=== PATIENT | male | born 1960 | race African-American/Black ===

== ENCOUNTER 2017-12-20 09:49 | Inpatient (IN) | payer OTHER ==
[2017-12-20 10:59] VITALS: BMI 32.3
--- NOTE | 2017-12-20 13:51 | HP ---
COWS - Scale Resting Pulse: 1= [place] 81-100 Sweatin=Flushed/Facial Moisture Restless Observation: 1= Difficult to Sit Still Pupil Size: 0= Normal to Room Light Bone or Joint Aches: 2= Severe Diffuse Aches Runny Nose/ Eye Tearin= Nasal Congestion GI Upset > 30mins: 2= Nausea/Diarrhea Tremor Observation: 2= Slight Tremor Visible Yawning Observation: 1= 1-2x During Session Anxiety or Irritability: 2=Irritable/Anxious Goose Flesh Skin: 0=Smooth Skin COWS Score: 14 Admission ROS S - HPI Chief Complaint: "I know that I need help for myself and for my and family." Patient is here to Detox from Heroin. Allergies/Adverse Reactions: Allergies Allergy/AdvReac Type Severity Reaction Status Date / Time meperidine HCl [From Demerol] Allergy Hives Verified 12/20/17 11:19 History of Present Illness: Patient is a 57 YO male here to Detox from Heroin. This is patient's first Detox admission to [facility] (and in general). Exam Limitations: No Limitations - Ebola screening Have you traveled outside of the country in the last 21 days: No Have you had contact with anyone from an Ebola affected area: No Have you been sick,other than usual withdrawal symptoms: No Do you have a fever: No - Review of Systems Constitutional: Diaphoresis, Loss of Appetite, Malaise, Night Sweats, Changes in sleep, Unintentional Wgt. Loss EENT: reports: Nose Congestion, Sinus Pressure Respiratory: reports: No Symptoms reported Cardiac: reports: No Symptoms Reported GI: reports: Diarrhea, Nausea, Poor Appetite, Indigestion (Heartburn.) : reports: No Symptoms Reported Musculoskeletal: reports: No Symptoms Reported Integumentary: reports: No Symptoms Reported Neuro: reports: Tremors Endocrine: reports: No Symptoms Reported Hematology: reports: No Symptoms Reported Psychiatric: reports: Judgement Intact, Mood/Affect Appropiate, Orientated x3, Anxious, Depressed Other Systems: Reviewed and Negative Patient History - Patient Medical History Hx Anemia: No Hx Asthma: No Hx Chronic Obstructive Pulmonary Disease (COPD): No Hx Cancer: No Hx Cardiac Disorders: Yes (Pt had an aortic dissection x2) Hx Congestive Heart Failure: No Hx Hypertension: Yes (on meds.) Hx Hypercholesterolemia: No Hx Pacemaker: No HX Cerebrovascular Accident: No Hx Seizures: No Hx Dementia: No Hx Diabetes: No Hx Gastrointestinal Disorders: No Hx Liver Disease: No Hx Genitourinary Disorders: No Hx Sexually Transmitted Disorders: No Hx Renal Disease (ESRD): No Hx Thyroid Disease: No Hx Human Immunodeficiency Virus (HIV): No (Last Tested Many Years Ago: NEGATIVE. ) Hx Hepatitis C: No (Last Tested Many Years Ago: NEGATIVE.) Hx Depression: Yes (No Previous Treatment.) Hx Suicide Attempt: No (PATIENT DENIES CURRENT SI / HI.) Hx Bipolar Disorder: No Hx Schizophrenia: No Other Medical History: DENIES. - Patient Surgical History Past Surgical History: Yes Hx Neurologic Surgery: No Hx Cataract Extraction: No Hx Cardiac Surgery: Yes (Aortic dissection repair in 2017 and 2015) Hx Lung Surgery: No Hx Breast Surgery: No Hx Breast Biopsy: No Hx Abdominal Surgery: No Hx Appendectomy: No Hx Cholecystectomy: Yes (Unable to Recall Year.) Hx Genitourinary Surgery: Yes (Sx for kidney stones stent placement, > 10 years ago.) Hx Section: No Hx Orthopedic Surgery: No Other Surgical History: DENIES. Anesthesia Reaction: No - PPD History Previous Implant?: Yes Documented Results: Negative w/o proof Implanted On Prior R Admission?: No PPD to be Administered?: Yes - Reproductive History Patient is a Female of Child Bearing Age (11 -55 yrs old): No (PATIENT IS MALE.) - Smoking Cessation Smoking history: Never smoked Aproximately how many cigarettes per day: 0 Cigars Per Day: 0 Hx Chewing Tobacco Use: No Initiated information on smoking cessation: No - Substance & Tx. History Hx Alcohol Use: No Hx Substance Use: Yes Substance Use Type: Heroin Hx Substance Use Treatment: Yes ([facility] (stopped > 10 years ago).) - Substances Abused Heroin Route: Inhalation Frequency: Daily Amount used: 2 bags Age of first use: 24 Date of Last Use: 12/19/17 PCP Route: Smoking Frequency: Daily Amount used: 2 bags Age of first use: 22 Date of Last Use: 12/19/17 Family Disease History - Family Disease History Family Disease History: Diabetes: Father (Low BP; Kidney Dialysis. .), Heart Disease: Father, Mother (HTN), Brother (HTN; Cerbral Palsy.), Other: Father, Brother Admission Physical Exam BHS - Vital Signs Vital Signs: Vital Signs - 24 hr 12/20/17 10:56 Temperature 98 F Pulse Rate 90 Respiratory 18 Rate Blood Pressure 164/120 - Physical General Appearance: Yes: No Apparent Distress, Nourished, Appropriately Dressed , Tremorous, Anxious HEENTM: Yes: Hearing grossly Normal, Normocephalic, Normal Voice, GLENIS, Tm's normal Respiratory: Yes: Chest Non-Tender, Lungs Clear, No Respiratory Distress, No Accessory Muscle Use Neck: Yes: No masses,lesions,Nodules, Supple, Trachea in good position Breast: Yes: Breast Exam Deferred Cardiology: Yes: Regular Rhythm, Regular Rate, S1, S2 Abdominal: Yes: Normal Bowel Sounds, Non Tender, Flat, Soft Genitourinary: Yes: Within Normal Limits Back: Yes: Normal Inspection Musculoskeletal: Yes: full range of Motion, Gait Steady Extremities: Yes: Normal Capillary Refill, Normal Range of Motion, Non-Tender, Tremors Neurological: Yes: Fully Oriented, Alert, Normal Mood/Affect, Normal Response Integumentary: Yes: Normal Color, Dry, Warm Lymphatic: Yes: Within Normal Limits - Diagnostic (1) Opioid dependence with withdrawal Current Visit: Yes Status: Acute (2) PCP (phencyclidine) abuse Current Visit: Yes Status: Acute (3) History of aortic dissection Current Visit: Yes Status: Acute Comment: X 2 (2014, 2016). (4) History of dissecting abdominal aortic aneurysm repair Current Visit: Yes Status: Acute Comment: X 2 (2014, 2016). (5) Hypertension Current Visit: Yes Status: Acute Qualifiers: Hypertension type: essential hypertension Qualified Code(s): I10 - Essential (primary) hypertension Cleared for Admission [facility] - Detox or Rehab [facility] Level of Care: Medically Managed Detox Regimen/Protocol: Methadone [facility] Breath Alcohol Content Breath Alcohol Content: 0 Urine Drug Screen - Results Drug Screen Negative: No Urine Drug Screen Results: OPI-Opiates
[2017-12-20] MEDS ORDERED: MAGNESIUM CITRATE 300 ML BOTTLE PO PRN (14:15)
[2017-12-20] MEDS ORDERED: P-EPHED 60MG/TRIPROLIDI 2.5MG TABLET PO PRN (14:15)
[2017-12-20] MEDS ORDERED: LOPERAMIDE HCL 2 MG CAPSULE PO PRN (14:15)
[2017-12-20] MEDS ORDERED: guaiFENesin/D-METHORPHAN HB 10 ML UNIT-DOSE CUPS PO PRN (14:15)
[2017-12-20] MEDS ORDERED: MENTHOL/PHENOL 1 EACH UD MM PRN (14:15)
[2017-12-20] MEDS ORDERED: ACETAMINOPHEN 325 MG TABLET (FP) PO PRN (14:15)
[2017-12-20] MEDS ORDERED: IBUPROFEN 400 MG TABLET (FP) PO PRN (14:15)
[2017-12-20] MEDS ORDERED: MAG HYDROX/AL HYDROX/SIMETH 30 ML UNIT-DOSE CUP PO PRN (14:15)
[2017-12-20] MEDS ORDERED: MAGNESIUM HYDROX 2400MG/30ML ORAL SUSPENSION 30 ML CUP PO PRN (14:15)
[2017-12-20] MEDS ORDERED: METHADONE HCL 10 MG TABLET (FOR DETOX USE ONLY) PO ONE ×2 (14:55→23:00)
[2017-12-20] MEDS: diazePAM 5 MG TABLET PO PRN ×2 (16:13→22:15)
[2017-12-20] MEDS: LABETALOL HCL 200 MG TABLET (FP) PO SCH ×2 (16:14→22:16)
--- NOTE | 2017-12-20 18:07 | CONSULT ---
[facility] Psychiatric Consult - Data Date of interview: 12/20/17 Admission source: [facility] Identifying data: First admission to [facility] for this 57 y/o AA male seeking detox treatment on for heroin and phencyclidine dependence.Patient is ,a father of three,domiciled,unemployed,disabled and supported on SSI benefits. Substance Abuse History: Confirmed by patient in this session.Smoking history: Never smoked. Aproximately how many cigarettes per day: 0. Cigars Per Day: 0. Hx Chewing Tobacco Use: No. Initiated information on smoking cessation: No. - Substance & Tx. History. Hx Alcohol Use: No. Hx Substance Use: Yes. Substance Use Type: Heroin. Hx Substance Use Treatment: Yes ([facility] (stopped > 10 years ago).). - Substances Abused. Heroin. Route: Inhalation. Frequency: Daily. Amount used: 2 bags. Age of first use: 24. Date of Last Use: 12/19/17. PCP. Route: Smoking. Frequency: Daily. Amount used: 2 bags. Age of first use: 22. Date of Last Use: 12/19/17 Medical History: Hypertension,past history of cholecystectomy,CVA (2010) without residual deficits,renal disease (history of stent placement) and antecedent of treatment for aortic dissection (2017). Psychiatric History: Patient denies. Physical/Sexual Abuse/Trauma History: Patient denies. Additional Comment: Urine Drug Screen Results: OPI-Opiates.Noted. Mental Status Exam - Mental Status Exam Alert and Oriented to: Time, Place, Person Cognitive Function: Good Patient Appearance: Well Groomed Mood: Withdrawn, Hopeful Affect: Mood Congruent, Constricted Patient Behavior: Fatigued, Appropriate, Cooperative Speech Pattern: Clear, Appropriate Voice Loudness: Normal Thought Process: Intact, Goal Oriented Thought Disorder: Not Present Hallucinations: Denies Suicidal Ideation: Denies Homicidal Ideation: Denies Insight/Judgement: Poor Sleep: Poorly, Difficulty falling asleep Appetite: Good Muscle strength/Tone: Normal Gait/Station: Normal Psychiatric Findings - Problem List ([place] 1, 2,3) (1) Opioid dependence with withdrawal Status: Acute (2) PCP (phencyclidine) abuse Status: Acute (3) Insomnia Status: Acute - Initial Treatment Plan Initial Treatment Plan: Psychoeducation.Sleep hygiene.Orientation to unit.Detoxification in progress.Ambien 5 mg po hs prn.Patient is informed of risk of parasomnias.He agrees with this careplan.Observation.
[2017-12-20] MEDS: THIAMINE HCL 100 MG TABLET (FP) PO SCH (22:15)
[2017-12-20] MEDS: ATORVASTATIN CA 20 MG TABLET (FP) PO SCH (22:16)
[2017-12-20] MEDS: ZOLPIDEM TARTRATE 5 MG TABLET PO PRN (22:16)
[2017-12-20 22:34] LABS: URINE APPEARANCE SLCLOUDY; URINE BILIRUBIN NEGATIVE (NEGATIVE); URINE BLOOD NEGATIVE (NEGATIVE); URINE COLOR YELLOW; URINE GLUCOSE (UA) NEGATIVE (NEGATIVE); URINE KETONE NEGATIVE (NEGATIVE); URINE LEUK ESTERASE NEGATIVE (NEGATIVE); URINE NITRITE NEGATIVE (NEGATIVE); URINE PROTEIN NEGATIVE (NEGATIVE); URINE UROBILINOGEN NEGATIVE mg/dL (0.2-1.0)
[2017-12-21] MEDS: LABETALOL HCL 200 MG TABLET (FP) PO SCH ×3 (05:12→22:04)
[2017-12-21] MEDS ORDERED: METHADONE HCL 10 MG TABLET (FOR DETOX USE ONLY) PO ONE (10:00)
[2017-12-21] MEDS: FLUTICASONE PROP 0.05% 16 GM NASAL SPRAY NS SCH (10:10)
[2017-12-21] MEDS: PRENATAL VITAMINS W/ FOLIC ACID TABLET (FP) PO SCH (10:10)
[2017-12-21] MEDS: CHLORTHALIDONE 25 MG TABLET PO SCH (10:11)
[2017-12-21] MEDS: PANTOPRAZOLE 40 MG TABLET (FP) PO SCH (10:12)
[2017-12-21] MEDS: ASPIRIN 81 MG CHEWABLE TABLETS PO SCH (10:12)
[2017-12-21] MEDS: diazePAM 5 MG TABLET PO PRN ×2 (10:12→22:06)
[2017-12-21] MEDS: amLODIPine BESYLATE 10 MG TABLET (FP) PO SCH (10:12)
[2017-12-21] MEDS: LISINOPRIL 20 MG TABLET (FP) PO SCH (10:12)
[2017-12-21 11:04] LABS: HEMATOCRIT 40.6 % (35.4-49); HEMOGLOBIN 13.1 GM/dL (11.7-16.9); MCH 26.3 pg (25.7-33.7); MCHC 32.3 g/dl (32.0-35.9); MEAN CELL VOLUME 81.5 fl (80-96); MEAN PLT VOLUME 9.2 fl (7.5-11.1); PLATELET COUNT 168 K/MM3 (134-434); RBC 4.98 M/mm3 (4.00-5.60); RDW 15.5 % (11.9-15.9); WHITE BLOOD COUNT 6.1 K/mm3 (4.0-10.0)
[2017-12-21 11:13] LABS: ALBUMIN 3.9 g/dl (3.4-5.0); ANION GAP 12 (8-16); BILIRUBIN,TOTAL 0.8 mg/dL (0.2-1.0); BLOOD UREA NITROGEN 24 mg/dL (7-18); CALCIUM 9.6 mg/dL (8.5-10.1); CHLORIDE 107 mmol/L (98-107); CO2 23 mmol/L (21-32); CREATININE 1.9 mg/dL (0.7-1.3); GLUCOSE,RANDOM 139 mg/dL (74-106); POTASSIUM 3.9 mmol/L (3.5-5.1); SGOT/AST 23 U/L (15-37); SGPT/ALT 17 U/L (12-78); SODIUM 142 mmol/L (136-145); TOT PROT 8.5 g/dl (6.4-8.2)
[2017-12-21 11:14] LABS: ALK PHOS 74 U/L (45-117)
--- NOTE | 2017-12-21 11:57 | EKG ---
Test Reason : Blood Pressure : / mmHG Vent. Rate : 078 BPM Atrial Rate : 078 BPM P-R Int : 168 ms QRS Dur : 100 ms QT Int : 380 ms P-R-T Axes : 039 011 025 degrees QTc Int : 433 ms NORMAL SINUS RHYTHM MODERATE VOLTAGE CRITERIA FOR LVH, MAY BE NORMAL VARIANT BORDERLINE ECG Confirmed by MD GO, KWADWO ([id number]) on 12/21/2017 11:57:26 AM Referred By: Confirmed By:KWADWO STILES MD
[2017-12-21] MEDS ORDERED: FLU VACCINE QUAD 60 MCG/0.5 ML (MDV 17-18) IM ONE (12:00)
[2017-12-21] MEDS ORDERED: PNEUMOCOCCAL 23 VACCINE 0.5 ML VIAL IM ONE (12:00)
[2017-12-21] MEDS ORDERED: PNEUMOC 13-VAL CONJ-DIP CRM/PF 0.5 ML DISP.SYRIN IM ONE (12:00)
--- NOTE | 2017-12-21 13:39 | PN ---
BHS COWS - Scale Resting Pulse: 0= [place] 80 or Below Sweatin= Chills/Flushing Restless Observation: 1= Difficult to Sit Still Pupil Size: 0= Normal to Room Light Bone or Joint Aches: 2= Severe Diffuse Aches Runny Nose/ Eye Tearin= None GI Upset > 30mins: 3= Vomiting/Diarrhea Tremor Observation of Outstretched Hands: 2= Slight Tremor Visible Yawning Observation: 1= 1-2x During Session Anxiety or Irritability: 2=Irritable/Anxious Goose Flesh Skin: 3=Piloerection COWS Score: 15 BHS Progress Note (SOAP) Subjective: Tremors, Body Aches, Stomach Cramping, H/A, Sweating. Objective: PATIENT A & O X 3, OBSERVED AMBULATING ON UNIT. NO ACUTE DISTRESS. 12/21/17 13:38 Vital Signs Temperature 98.6 F 12/21/17 09:45 Pulse Rate 62 12/21/17 09:45 Respiratory Rate 20 12/21/17 09:45 Blood Pressure 123/69 12/21/17 09:45 O2 Sat by Pulse Oximetry (%) Laboratory Tests 12/20/17 12/20/17 12/21/17 12:00 21:30 05:40 WBC 6.1 RBC 4.98 Hgb 13.1 Hct 40.6 MCV 81.5 MCH 26.3 MCHC 32.3 RDW 15.5 Plt Count 168 MPV 9.2 Sodium Potassium Chloride Carbon Dioxide Anion Gap BUN Creatinine Creat Clearance w eGFR Random Glucose Calcium Total Bilirubin AST ALT Alkaline Phosphatase Total Protein Albumin Urine Color Yellow Urine Appearance Slcloudy Urine pH 5.0 Ur Specific [place] 1.016 Urine Protein Negative Urine Glucose (UA) Negative Urine Ketones Negative Urine Blood Negative Urine Nitrite Negative Urine Bilirubin Negative Urine Urobilinogen Negative Ur Leukocyte Esterase Negative HIV 1&2 Antibody Screen Negative HIV P24 Antigen Negative 12/21/17 05:40 WBC RBC Hgb Hct MCV MCH MCHC RDW Plt Count MPV Sodium 142 Potassium 3.9 Chloride 107 Carbon Dioxide 23 Anion Gap 12 BUN 24 H Creatinine 1.9 H Creat Clearance w eGFR 36.85 Random Glucose 139 H D Calcium 9.6 Total Bilirubin 0.8 D AST 23 D ALT 17 D Alkaline Phosphatase 74 D Total Protein 8.5 H Albumin 3.9 Urine Color Urine Appearance Urine pH Ur Specific [place] Urine Protein Urine Glucose (UA) Urine Ketones Urine Blood Urine Nitrite Urine Bilirubin Urine Urobilinogen Ur Leukocyte Esterase HIV 1&2 Antibody Screen HIV P24 Antigen LABS NOTED. RPR RESULT PENDING. 12/21/17 13:40 Assessment: 12/21/17 13:38 WITHDRAWAL SYMPTOMS. Plan: CONTINUE DETOX. BMP ON 12/23/2017 FOR ABNORMAL ADMSSION RENAL LAB VALUES. D/C IBUPROFEN AND MAGNESIUM-CONTAINING MEDS. BGM ACBK FOR ELEVATED ADMISSION RANDOM GLUCOSE LEVEL.
[2017-12-21] MEDS: THIAMINE HCL 100 MG TABLET (FP) PO SCH (22:03)
[2017-12-21] MEDS: ZOLPIDEM TARTRATE 5 MG TABLET PO PRN (22:03)
[2017-12-21] MEDS: ATORVASTATIN CA 20 MG TABLET (FP) PO SCH (22:03)
[2017-12-22] MEDS: LABETALOL HCL 200 MG TABLET (FP) PO SCH ×3 (06:40→22:12)
[2017-12-22] MEDS ORDERED: METHADONE HCL 5 MG TABLET (FOR DETOX USE ONLY) PO ONE (10:00)
[2017-12-22] MEDS: amLODIPine BESYLATE 10 MG TABLET (FP) PO SCH (10:07)
[2017-12-22] MEDS: PANTOPRAZOLE 40 MG TABLET (FP) PO SCH (10:07)
[2017-12-22] MEDS: LISINOPRIL 20 MG TABLET (FP) PO SCH (10:07)
[2017-12-22] MEDS: CHLORTHALIDONE 25 MG TABLET PO SCH (10:07)
[2017-12-22] MEDS: ASPIRIN 81 MG CHEWABLE TABLETS PO SCH (10:07)
[2017-12-22] MEDS: PRENATAL VITAMINS W/ FOLIC ACID TABLET (FP) PO SCH (10:07)
[2017-12-22] MEDS: FLUTICASONE PROP 0.05% 16 GM NASAL SPRAY NS SCH (10:08)
[2017-12-22] MEDS: diazePAM 5 MG TABLET PO PRN ×3 (10:08→22:12)
--- NOTE | 2017-12-22 13:05 | PN ---
BHS COWS - Scale Resting Pulse: 0= [place] 80 or Below Sweatin= Chills/Flushing Restless Observation: 3= Extraneous Movement Pupil Size: 0= Normal to Room Light Bone or Joint Aches: 2= Severe Diffuse Aches Runny Nose/ Eye Tearin= Runny Nose/Eyes GI Upset > 30mins: 2= Nausea/Diarrhea Tremor Observation of Outstretched Hands: 2= Slight Tremor Visible Yawning Observation: 1= 1-2x During Session Anxiety or Irritability: 2=Irritable/Anxious Goose Flesh Skin: 0=Smooth Skin COWS Score: 15 BHS Progress Note (SOAP) Subjective: Body aches, stomach ache, chills, interrupted sleep Objective: 12/22/17 13:02 Last Vital Signs Temp Pulse Resp BP Pulse Ox 96.1 F L 66 18 149/87 12/22/17 09:40 12/22/17 09:40 12/22/17 09:40 12/22/17 09:40 Laboratory Tests 12/20/17 12/20/17 12/21/17 12:00 21:30 05:40 WBC 6.1 RBC 4.98 Hgb 13.1 Hct 40.6 MCV 81.5 MCH 26.3 MCHC 32.3 RDW 15.5 Plt Count 168 MPV 9.2 Sodium Potassium Chloride Carbon Dioxide Anion Gap BUN Creatinine Creat Clearance w eGFR POC Glucometer Random Glucose Calcium Total Bilirubin AST ALT Alkaline Phosphatase Total Protein Albumin Urine Color Yellow Urine Appearance Slcloudy Urine pH 5.0 Ur Specific [place] 1.016 Urine Protein Negative Urine Glucose (UA) Negative Urine Ketones Negative Urine Blood Negative Urine Nitrite Negative Urine Bilirubin Negative Urine Urobilinogen Negative Ur Leukocyte Esterase Negative HIV 1&2 Antibody Screen Negative HIV P24 Antigen Negative 12/21/17 12/22/17 05:40 06:33 WBC RBC Hgb Hct MCV MCH MCHC RDW Plt Count MPV Sodium 142 Potassium 3.9 Chloride 107 Carbon Dioxide 23 Anion Gap 12 BUN 24 H Creatinine 1.9 H Creat Clearance w eGFR 36.85 POC Glucometer 114 Random Glucose 139 H D Calcium 9.6 Total Bilirubin 0.8 D AST 23 D ALT 17 D Alkaline Phosphatase 74 D Total Protein 8.5 H Albumin 3.9 Urine Color Urine Appearance Urine pH Ur Specific [place] Urine Protein Urine Glucose (UA) Urine Ketones Urine Blood Urine Nitrite Urine Bilirubin Urine Urobilinogen Ur Leukocyte Esterase HIV 1&2 Antibody Screen HIV P24 Antigen Labs noted: serum creatinine 1.9, bun 24, GFR 36.85, serum glucose 139 Assessment: 12/22/17 13:04 Withdrawal symptoms Noted with GERALD and hyperglycemia Plan: Continue detox GERALD: encouraged to drink lots of water, repeat bmp (already ordered) Hyperglycemia: repeat fasting glucose, send HbA1c, consider starting oral antidiabetic if warranted, continue finger stick glucose
[2017-12-22] MEDS: THIAMINE HCL 100 MG TABLET (FP) PO SCH (22:10)
[2017-12-22] MEDS: ATORVASTATIN CA 20 MG TABLET (FP) PO SCH (22:12)
[2017-12-23] MEDS: LABETALOL HCL 200 MG TABLET (FP) PO SCH ×3 (05:32→22:37)
[2017-12-23] MEDS: diazePAM 5 MG TABLET PO PRN ×2 (05:33→09:40)
[2017-12-23] MEDS ORDERED: METHADONE HCL 5 MG TABLET (FOR DETOX USE ONLY) PO ONE (10:00)
[2017-12-23] MEDS: PANTOPRAZOLE 40 MG TABLET (FP) PO SCH (10:18)
[2017-12-23] MEDS: CHLORTHALIDONE 25 MG TABLET PO SCH (10:18)
[2017-12-23] MEDS: FLUTICASONE PROP 0.05% 16 GM NASAL SPRAY NS SCH (10:18)
[2017-12-23] MEDS: amLODIPine BESYLATE 10 MG TABLET (FP) PO SCH ×2 (10:18→16:35)
[2017-12-23] MEDS: ASPIRIN 81 MG CHEWABLE TABLETS PO SCH (10:19)
[2017-12-23] MEDS: PRENATAL VITAMINS W/ FOLIC ACID TABLET (FP) PO SCH (10:19)
[2017-12-23 10:28] LABS: ANION GAP 12 (8-16); BLOOD UREA NITROGEN 25 mg/dL (7-18); CALCIUM 8.8 mg/dL (8.5-10.1); CHLORIDE 104 mmol/L (98-107); CO2 24 mmol/L (21-32); GLUCOSE,RANDOM 87 mg/dL (74-106); POTASSIUM 4.5 mmol/L (3.5-5.1); SODIUM 140 mmol/L (136-145)
--- NOTE | 2017-12-23 10:51 | PN ---
BHS Progress Note (SOAP) Subjective: ANXIETY,SWEATS,MUSCLE ACHES,INTERMITTENT SLEEP. Objective: 12/23/17 10:51 Vital Signs Temperature 96.2 F L 12/23/17 09:39 Pulse Rate 69 12/23/17 09:39 Respiratory Rate 20 12/23/17 09:39 Blood Pressure 123/77 12/23/17 09:39 O2 Sat by Pulse Oximetry (%) Laboratory Last Values WBC 6.1 K/mm3 (4.0-10.0) 12/21/17 05:40 RBC 4.98 M/mm3 (4.00-5.60) 12/21/17 05:40 Hgb 13.1 GM/dL (11.7-16.9) 12/21/17 05:40 Hct 40.6 % (35.4-49) 12/21/17 05:40 MCV 81.5 fl (80-96) 12/21/17 05:40 MCH 26.3 pg (25.7-33.7) 12/21/17 05:40 MCHC 32.3 g/dl (32.0-35.9) 12/21/17 05:40 RDW 15.5 % (11.9-15.9) 12/21/17 05:40 Plt Count 168 K/MM3 (134-434) 12/21/17 05:40 MPV 9.2 fl (7.5-11.1) 12/21/17 05:40 Sodium 140 mmol/L (136-145) 12/23/17 07:00 Potassium 4.5 mmol/L (3.5-5.1) 12/23/17 07:00 Chloride 104 mmol/L (98-107) 12/23/17 07:00 Carbon Dioxide 24 mmol/L (21-32) 12/23/17 07:00 Anion Gap 12 (8-16) 12/23/17 07:00 BUN 25 mg/dL (7-18) H 12/23/17 07:00 Creatinine 2.0 mg/dL (0.7-1.3) H 12/23/17 07:00 Creat Clearance w eGFR 36.85 (>60) 12/21/17 05:40 POC Glucometer 97 UNITS (80-120) 12/23/17 05:31 Random Glucose 87 mg/dL (74-106) D 12/23/17 07:00 Hemoglobin A1c % 6.0 % (4.8-6.0) 12/23/17 07:00 Calcium 8.8 mg/dL (8.5-10.1) 12/23/17 07:00 Total Bilirubin 0.8 mg/dL (0.2-1.0) D 12/21/17 05:40 AST 23 U/L (15-37) D 12/21/17 05:40 ALT 17 U/L (12-78) D 12/21/17 05:40 Alkaline Phosphatase 74 U/L (45-117) D 12/21/17 05:40 Total Protein 8.5 g/dl (6.4-8.2) H 12/21/17 05:40 Albumin 3.9 g/dl (3.4-5.0) 12/21/17 05:40 Urine Color Yellow 12/20/17 21:30 Urine Appearance Slcloudy 12/20/17 21:30 Urine pH 5.0 (5.0-8.0) 12/20/17 21:30 Ur Specific [place] 1.016 (1.001-1.035) 12/20/17 21:30 Urine Protein Negative (NEGATIVE) 12/20/17 21:30 Urine Glucose (UA) Negative (NEGATIVE) 12/20/17 21:30 Urine Ketones Negative (NEGATIVE) 12/20/17 21:30 Urine Blood Negative (NEGATIVE) 12/20/17 21:30 Urine Nitrite Negative (NEGATIVE) 12/20/17 21:30 Urine Bilirubin Negative (NEGATIVE) 12/20/17 21:30 Urine Urobilinogen Negative mg/dL (0.2-1.0) 12/20/17 21:30 Ur Leukocyte Esterase Negative (NEGATIVE) 12/20/17 21:30 RPR Titer Nonreactive (NONREACTIVE) 12/21/17 05:40 HIV 1&2 Antibody Screen Negative 12/20/17 12:00 HIV P24 Antigen Negative 12/20/17 12:00 Assessment: 12/23/17 10:51 WITHDRAWAL SX Plan: CONTINUE DETOX
[2017-12-23] MEDS: ATORVASTATIN CA 20 MG TABLET (FP) PO SCH (22:36)
[2017-12-23] MEDS: THIAMINE HCL 100 MG TABLET (FP) PO SCH (22:36)
[2017-12-24] MEDS: LABETALOL HCL 200 MG TABLET (FP) PO SCH ×3 (05:23→22:43)
[2017-12-24] MEDS ORDERED: METHADONE HCL 10 MG TABLET (FOR DETOX USE ONLY) PO ONE (10:00)
[2017-12-24] MEDS ORDERED: CHLORTHALIDONE 25 MG TABLET PO SCH ×2 (10:00)
[2017-12-24] MEDS: FLUTICASONE PROP 0.05% 16 GM NASAL SPRAY NS SCH (10:22)
[2017-12-24] MEDS: ASPIRIN 81 MG CHEWABLE TABLETS PO SCH (10:23)
[2017-12-24] MEDS: PRENATAL VITAMINS W/ FOLIC ACID TABLET (FP) PO SCH (10:23)
[2017-12-24] MEDS: amLODIPine BESYLATE 10 MG TABLET (FP) PO SCH (10:23)
[2017-12-24] MEDS: PANTOPRAZOLE 40 MG TABLET (FP) PO SCH (10:50)
--- NOTE | 2017-12-24 12:39 | PN ---
S Progress Note (SOAP) Subjective: ANXIETY,SWEATS,DIARRHEA. Objective: 12/24/17 12:42 Vital Signs Temperature 97.1 F L 12/24/17 09:16 Pulse Rate 87 12/24/17 09:16 Respiratory Rate 18 12/24/17 09:16 Blood Pressure 126/79 12/24/17 09:16 O2 Sat by Pulse Oximetry (%) Laboratory Last Values WBC 6.1 K/mm3 (4.0-10.0) 12/21/17 05:40 RBC 4.98 M/mm3 (4.00-5.60) 12/21/17 05:40 Hgb 13.1 GM/dL (11.7-16.9) 12/21/17 05:40 Hct 40.6 % (35.4-49) 12/21/17 05:40 MCV 81.5 fl (80-96) 12/21/17 05:40 MCH 26.3 pg (25.7-33.7) 12/21/17 05:40 MCHC 32.3 g/dl (32.0-35.9) 12/21/17 05:40 RDW 15.5 % (11.9-15.9) 12/21/17 05:40 Plt Count 168 K/MM3 (134-434) 12/21/17 05:40 MPV 9.2 fl (7.5-11.1) 12/21/17 05:40 Sodium 140 mmol/L (136-145) 12/23/17 07:00 Potassium 4.5 mmol/L (3.5-5.1) 12/23/17 07:00 Chloride 104 mmol/L (98-107) 12/23/17 07:00 Carbon Dioxide 24 mmol/L (21-32) 12/23/17 07:00 Anion Gap 12 (8-16) 12/23/17 07:00 BUN 25 mg/dL (7-18) H 12/23/17 07:00 Creatinine 2.0 mg/dL (0.7-1.3) H 12/23/17 07:00 Creat Clearance w eGFR 36.85 (>60) 12/21/17 05:40 POC Glucometer 107 UNITS (80-120) 12/24/17 05:24 Random Glucose 87 mg/dL (74-106) D 12/23/17 07:00 Hemoglobin A1c % 6.0 % (4.8-6.0) 12/23/17 07:00 Calcium 8.8 mg/dL (8.5-10.1) 12/23/17 07:00 Total Bilirubin 0.8 mg/dL (0.2-1.0) D 12/21/17 05:40 AST 23 U/L (15-37) D 12/21/17 05:40 ALT 17 U/L (12-78) D 12/21/17 05:40 Alkaline Phosphatase 74 U/L (45-117) D 12/21/17 05:40 Total Protein 8.5 g/dl (6.4-8.2) H 12/21/17 05:40 Albumin 3.9 g/dl (3.4-5.0) 12/21/17 05:40 Urine Color Yellow 12/20/17 21:30 Urine Appearance Slcloudy 12/20/17 21:30 Urine pH 5.0 (5.0-8.0) 12/20/17 21:30 Ur Specific [place] 1.016 (1.001-1.035) 12/20/17 21:30 Urine Protein Negative (NEGATIVE) 12/20/17 21:30 Urine Glucose (UA) Negative (NEGATIVE) 12/20/17 21:30 Urine Ketones Negative (NEGATIVE) 12/20/17 21:30 Urine Blood Negative (NEGATIVE) 12/20/17 21:30 Urine Nitrite Negative (NEGATIVE) 12/20/17 21:30 Urine Bilirubin Negative (NEGATIVE) 12/20/17 21:30 Urine Urobilinogen Negative mg/dL (0.2-1.0) 12/20/17 21:30 Ur Leukocyte Esterase Negative (NEGATIVE) 12/20/17 21:30 RPR Titer Nonreactive (NONREACTIVE) 12/21/17 05:40 HIV 1&2 Antibody Screen Negative 12/20/17 12:00 HIV P24 Antigen Negative 12/20/17 12:00 Assessment: 12/24/17 12:43 WITHDRAWAL SX Plan: CONTINUE DETOX
[2017-12-24] MEDS: ATORVASTATIN CA 20 MG TABLET (FP) PO SCH (22:13)
[2017-12-24] MEDS: THIAMINE HCL 100 MG TABLET (FP) PO SCH (22:13)
[2017-12-25] MEDS: LABETALOL HCL 200 MG TABLET (FP) PO SCH (05:50)
[2017-12-25] MEDS ORDERED: METHADONE HCL 5 MG TABLET (FOR DETOX USE ONLY) PO ONE (06:00)
[2017-12-25 06:11] VITALS: BP 114/62; PULSE 70; TEMP 95.8
--- NOTE | 2017-12-25 08:49 | DS ---
[facility] Detox Discharge Summary Admission Date: 12/20/17 Discharge Date: 12/25/17 - History Present History: Opioid Dependence, Pcp Dependence Additional Comments: DETOX COMPLETED. PT TO FOLLOW UP WITH HIS PMD DR MARCIA GUNN(NOT SURE OF SPELLING) AT [address] [place] [address] FOR MEDICAL MANAGEMENT OF COMORBID CONDITIONS NEEDED. Pertinent Past History: SEE DX BELOW - Physical Exam Results Vital Signs: Vital Signs Temperature 95.8 F L 12/25/17 06:11 Pulse Rate 70 12/25/17 06:11 Respiratory Rate 19 12/25/17 06:11 Blood Pressure 114/62 12/25/17 06:11 O2 Sat by Pulse Oximetry (%) Pertinent Admission Physical Exam Findings: WITHDRAWAL SX Laboratory Last Values WBC 6.1 K/mm3 (4.0-10.0) 12/21/17 05:40 RBC 4.98 M/mm3 (4.00-5.60) 12/21/17 05:40 Hgb 13.1 GM/dL (11.7-16.9) 12/21/17 05:40 Hct 40.6 % (35.4-49) 12/21/17 05:40 MCV 81.5 fl (80-96) 12/21/17 05:40 MCH 26.3 pg (25.7-33.7) 12/21/17 05:40 MCHC 32.3 g/dl (32.0-35.9) 12/21/17 05:40 RDW 15.5 % (11.9-15.9) 12/21/17 05:40 Plt Count 168 K/MM3 (134-434) 12/21/17 05:40 MPV 9.2 fl (7.5-11.1) 12/21/17 05:40 Sodium 140 mmol/L (136-145) 12/23/17 07:00 Potassium 4.5 mmol/L (3.5-5.1) 12/23/17 07:00 Chloride 104 mmol/L (98-107) 12/23/17 07:00 Carbon Dioxide 24 mmol/L (21-32) 12/23/17 07:00 Anion Gap 12 (8-16) 12/23/17 07:00 BUN 25 mg/dL (7-18) H 12/23/17 07:00 Creatinine 2.0 mg/dL (0.7-1.3) H 12/23/17 07:00 Creat Clearance w eGFR 36.85 (>60) 12/21/17 05:40 POC Glucometer 102 UNITS (80-120) 12/25/17 05:43 Random Glucose 87 mg/dL (74-106) D 12/23/17 07:00 Hemoglobin A1c % 6.0 % (4.8-6.0) 12/23/17 07:00 Calcium 8.8 mg/dL (8.5-10.1) 12/23/17 07:00 Total Bilirubin 0.8 mg/dL (0.2-1.0) D 12/21/17 05:40 AST 23 U/L (15-37) D 12/21/17 05:40 ALT 17 U/L (12-78) D 12/21/17 05:40 Alkaline Phosphatase 74 U/L (45-117) D 12/21/17 05:40 Total Protein 8.5 g/dl (6.4-8.2) H 12/21/17 05:40 Albumin 3.9 g/dl (3.4-5.0) 12/21/17 05:40 Urine Color Yellow 12/20/17 21:30 Urine Appearance Slcloudy 12/20/17 21:30 Urine pH 5.0 (5.0-8.0) 12/20/17 21:30 Ur Specific [place] 1.016 (1.001-1.035) 12/20/17 21:30 Urine Protein Negative (NEGATIVE) 12/20/17 21:30 Urine Glucose (UA) Negative (NEGATIVE) 12/20/17 21:30 Urine Ketones Negative (NEGATIVE) 12/20/17 21:30 Urine Blood Negative (NEGATIVE) 12/20/17 21:30 Urine Nitrite Negative (NEGATIVE) 12/20/17 21:30 Urine Bilirubin Negative (NEGATIVE) 12/20/17 21:30 Urine Urobilinogen Negative mg/dL (0.2-1.0) 12/20/17 21:30 Ur Leukocyte Esterase Negative (NEGATIVE) 12/20/17 21:30 RPR Titer Nonreactive (NONREACTIVE) 12/21/17 05:40 HIV 1&2 Antibody Screen Negative 12/20/17 12:00 HIV P24 Antigen Negative 12/20/17 12:00 - Treatment Hospital Course: Detox Protocol Followed, Detoxed Safely, Responded well, Discharged Condition Good, Rehab Referral Accepted Patient has Accepted a Rehab Referral to: [facility] - Medication Discharge Medications: Ambulatory Orders Amlodipine Besylate [Norvasc -] 10 mg PO DAILY 12/20/17 Aspirin [ASA -] 81 mg PO DAILY 12/20/17 Atorvastatin Ca [Lipitor] 20 mg PO HS 12/20/17 Chlorthalidone 25 mg PO DAILY 12/20/17 Fluticasone Prop 0.05% Nasal [Flonase -] 2 spray IH DAILY 12/20/17 Labetalol HCl [Normodyne -] 400 mg PO TID 12/20/17 Lisinopril [Prinivil -] 40 mg PO DAILY 12/20/17 Pantoprazole Sodium [Protonix -] 40 mg PO DAILY 12/20/17 Zolpidem Tartrate [Ambien] 10 mg PO HS 12/20/17 - Diagnosis (1) Opioid dependence with withdrawal Status: Acute (2) Hypertension Status: Chronic Qualifiers: Hypertension type: essential hypertension Qualified Code(s): I10 - Essential (primary) hypertension (3) History of dissecting abdominal aortic aneurysm repair Status: Chronic (4) PCP (phencyclidine) abuse Status: Acute (5) History of aortic dissection Status: Chronic - AMA Did Patient Leave Against Medical Advice: No
--- NOTE | 2017-12-25 08:54 | PN ---
S Progress Note (SOAP) Subjective: DETOX COMPLETED. ALERT O X 3. NAD. OOB AMBULATING WITH STEADY GAIT. PT STATES HIS IS PICKING HIM UP TODAY TO HOME THEN HE WILL FOLLOW UP WITH REHAB AT [facility]. Objective: 12/25/17 08:54 Vital Signs Temperature 95.8 F L 12/25/17 06:11 Pulse Rate 70 12/25/17 06:11 Respiratory Rate 19 12/25/17 06:11 Blood Pressure 114/62 12/25/17 06:11 O2 Sat by Pulse Oximetry (%) Laboratory Last Values WBC 6.1 K/mm3 (4.0-10.0) 12/21/17 05:40 RBC 4.98 M/mm3 (4.00-5.60) 12/21/17 05:40 Hgb 13.1 GM/dL (11.7-16.9) 12/21/17 05:40 Hct 40.6 % (35.4-49) 12/21/17 05:40 MCV 81.5 fl (80-96) 12/21/17 05:40 MCH 26.3 pg (25.7-33.7) 12/21/17 05:40 MCHC 32.3 g/dl (32.0-35.9) 12/21/17 05:40 RDW 15.5 % (11.9-15.9) 12/21/17 05:40 Plt Count 168 K/MM3 (134-434) 12/21/17 05:40 MPV 9.2 fl (7.5-11.1) 12/21/17 05:40 Sodium 140 mmol/L (136-145) 12/23/17 07:00 Potassium 4.5 mmol/L (3.5-5.1) 12/23/17 07:00 Chloride 104 mmol/L (98-107) 12/23/17 07:00 Carbon Dioxide 24 mmol/L (21-32) 12/23/17 07:00 Anion Gap 12 (8-16) 12/23/17 07:00 BUN 25 mg/dL (7-18) H 12/23/17 07:00 Creatinine 2.0 mg/dL (0.7-1.3) H 12/23/17 07:00 Creat Clearance w eGFR 36.85 (>60) 12/21/17 05:40 POC Glucometer 102 UNITS (80-120) 12/25/17 05:43 Random Glucose 87 mg/dL (74-106) D 12/23/17 07:00 Hemoglobin A1c % 6.0 % (4.8-6.0) 12/23/17 07:00 Calcium 8.8 mg/dL (8.5-10.1) 12/23/17 07:00 Total Bilirubin 0.8 mg/dL (0.2-1.0) D 12/21/17 05:40 AST 23 U/L (15-37) D 12/21/17 05:40 ALT 17 U/L (12-78) D 12/21/17 05:40 Alkaline Phosphatase 74 U/L (45-117) D 12/21/17 05:40 Total Protein 8.5 g/dl (6.4-8.2) H 12/21/17 05:40 Albumin 3.9 g/dl (3.4-5.0) 12/21/17 05:40 Urine Color Yellow 12/20/17 21:30 Urine Appearance Slcloudy 12/20/17 21:30 Urine pH 5.0 (5.0-8.0) 12/20/17 21:30 Ur Specific [place] 1.016 (1.001-1.035) 12/20/17 21:30 Urine Protein Negative (NEGATIVE) 12/20/17 21:30 Urine Glucose (UA) Negative (NEGATIVE) 12/20/17 21:30 Urine Ketones Negative (NEGATIVE) 12/20/17 21:30 Urine Blood Negative (NEGATIVE) 12/20/17 21:30 Urine Nitrite Negative (NEGATIVE) 12/20/17 21:30 Urine Bilirubin Negative (NEGATIVE) 12/20/17 21:30 Urine Urobilinogen Negative mg/dL (0.2-1.0) 12/20/17 21:30 Ur Leukocyte Esterase Negative (NEGATIVE) 12/20/17 21:30 RPR Titer Nonreactive (NONREACTIVE) 12/21/17 05:40 HIV 1&2 Antibody Screen Negative 12/20/17 12:00 HIV P24 Antigen Negative 12/20/17 12:00 Assessment: 12/25/17 08:55 NAD Plan: FEBRUARY D/C TODAY F/U WITH AFTERCARE PLANNED.
== END 2017-12-25 08:58 | disposition home or self-care (01) | DRG 773 ==
LOC: YASAS 09:49 → Y3N 12:57
PROVIDERS: ADMIT Internal Medicine; ATTEND Internal Medicine
PROC: HZ2ZZZZ Detoxification Services for Substance Abuse Treatment (ICD-10-PCS; principal; 2017-12-20)
DX: F11.23 Opioid dependence with withdrawal (principal); F16.10 Hallucinogen abuse, uncomplicated; F32.9 Major depressive disorder, single episode, unspecified; I10 Essential (primary) hypertension; N17.9 Acute kidney failure, unspecified; R73.9 Hyperglycemia, unspecified; G47.00 Insomnia, unspecified; Z86.79 Personal history of other diseases of the circulatory system; Z86.73 Personal history of transient ischemic attack (TIA), and cerebral infarction without residual deficits; Z88.8 Allergy status to other drugs, medicaments and biological substances
CPT/HCPCS: 36415; 71045-TC-FY; 80048; 80053; 81003; 82962; 83036; 85027; 86593; 87389; 93005; 93010

== ENCOUNTER → 2019-01-10 | Emergency (ER) | payer OTHER | LOC: JER 18:34 ==

== ENCOUNTER 2020-05-19 09:25 | Inpatient (IN) | payer OTHER ==
--- NOTE | 2020-05-19 09:40 | BHS.RME ---
Substance Use & Tx History - Substance Use History Heroin Substance amount: 2-3 bags Frequency of use: Daily Substance route: Inhalation (ex: sniffing or snorting) Date of Last Use: 05/19/20 PCP Substance amount: 1 bag Frequency of use: Once a month Substance route: Smoking Date of Last Use: 05/18/20 - Last Treatment Date of last treatment: 12/20-12/25/17 Treatment type: Substance Use Disorder (TONNY) Where was last treatment: Detox Physical/Psych/Mental Status - Behavior General Behavior: Increased activity (restlessness, agitation) Eye Contact: Normal - Cooperativeness Cooperativeness: Cooperative - Thinking Thought Processes: Tight, Logical, Goal Directed - Physical Health Problems Is patient presently having any pain?: No Does patient presently have any injuries (include location): No Does patient currently have a fever: No Is patient : No COWS - Scale Resting Pulse: 0= [place] 80 or Below Sweatin= Chills/Flushing Restless Observation: 3= Extraneous Movement Pupil Size: 1= Pupils >than Normal Bone or Joint Aches: 2= Severe Diffuse Aches Runny Nose/ Eye Tearin= Nasal Congestion GI Upset > 30mins: 0= None Tremor Observation: 1= Tremor [place], Not Seen Yawning Observation: 1= 1-2x During Session Anxiety or Irritability: 2=Irritable/Anxious Goose Flesh Skin: 0=Smooth Skin COWS Score: 12
[2020-05-19] MEDS ORDERED: MAG HYDROX/AL HYDROX/SIMETH 30 ML UNIT-DOSE CUP PO PRN (10:15)
[2020-05-19] MEDS ORDERED: METHADONE HCL 10 MG TABLET (FOR DETOX USE ONLY) PO ONE (10:15)
[2020-05-19] MEDS ORDERED: cloNIDine HCL 0.1 MG TABLET PO PRN (10:15)
[2020-05-19] MEDS ORDERED: ACETAMINOPHEN 325 MG TABLET (FP) PO PRN (10:15)
[2020-05-19] MEDS ORDERED: BISMUTH SUBSALICYLATE 262 MG/15 ML BTL PO PRN (10:15)
[2020-05-19] MEDS ORDERED: ONDANSETRON *ODT* 4 MG TABLET SL PRN (10:15)
[2020-05-19] MEDS ORDERED: MAGNESIUM CITRATE 300 ML BOTTLE PO PRN (10:15)
[2020-05-19] MEDS ORDERED: MENTHOL/PHENOL 1 EACH UD MM PRN (10:15)
[2020-05-19] MEDS ORDERED: IBUPROFEN 400 MG TABLET (FP) PO PRN (10:15)
[2020-05-19] MEDS ORDERED: MAGNESIUM HYDROX 2400MG/30ML ORAL SUSPENSION 30 ML CUP PO PRN (10:15)
--- NOTE | 2020-05-19 10:15 | HP ---
COWS - Scale Resting Pulse: 0= [place] 80 or Below Sweatin= Chills/Flushing Restless Observation: 3= Extraneous Movement Pupil Size: 1= Pupils >than Normal Bone or Joint Aches: 2= Severe Diffuse Aches Runny Nose/ Eye Tearin= Nasal Congestion GI Upset > 30mins: 0= None Tremor Observation: 1= Tremor [place], Not Seen Yawning Observation: 1= 1-2x During Session Anxiety or Irritability: 2=Irritable/Anxious Goose Flesh Skin: 0=Smooth Skin COWS Score: 12 CIWA Score - Admission Criteria OASAS Guidelines: Admission for Medically Managed Detox: Requires at least one of the followin. CIWA greater than 12 2. Seizures within the past 24 hours 3. Delirium tremens within the past 24 hours 4. Hallucinations within the past 24 hours 5. Acute intervention needed for co occurring medical disorder 6. Acute intervention needed for co occurring psychiatric disorder 7. Severe withdrawal that cannot be handled at a lower level of care (continued vomiting, continued diarrhea, abnormal vital signs) requiring intravenous medication and/or fluids 8. Admitting History and Physical - Admission Chief Complaint: Mr. Goetz is a 59 yo gentleman who presents to [facility] stating "I hurt alot of people using these drugs, this is my last chance". History of Present Illness: Mr. Goetz is a 59 yo gentleman who presents to [facility] stating "I hurt alot of people using these drugs, this is my last chance". He was last here between December 20 and 2017. At that time he completed detox and was abstinent until 8 months ago. PMH: HTN, HLD PSH: dissecting aortic aneurysm 2013, second surgery 2017, cholecystectomy Psych: none SOC: lives with in [place] Legal: none Substance Use History Heroin Substance amount: 2-3 bags Frequency of use: Daily Substance route: Inhalation (ex: sniffing or snorting) Date of Last Use: 05/19/20 First use age 31 No hx of OD No Narcan: no PCP Substance amount: 1 bag Frequency of use: Once a month Substance route: Smoking Date of Last Use: 05/18/20 First use age 20 y - Last Treatment Date of last treatment: 12/20-12/25/17 Treatment type: Substance Use Disorder (TONNY) Where was last treatment: Detox History Source: Patient Limitations to Obtaining History: No Limitations - Smoking History Smoking history: Never smoked Aproximately how many cigarettes per day: 0 - Alcohol/Substance Use Hx Alcohol Use: No Admission ROS BHS - HPI Allergies/Adverse Reactions: Allergies Allergy/AdvReac Type Severity Reaction Status Date / Time meperidine HCl [From Demerol] Allergy Hives Verified 01/10/19 18:52 Exam Limitations: No Limitations - Ebola screening Have you traveled outside of the country in the last 21 days: No Have you been sick,other than usual withdrawal symptoms: No Do you have a fever: No - Review of Systems Constitutional: No Symptoms Reported EENT: reports: Blurred Vision (uses glasses for distance, does not have glasses with him today) Respiratory: reports: SOB with Exertion Cardiac: reports: No Symptoms Reported GI: reports: No Symptoms Reported : reports: Other (kidney stone 10 years ago, no current sx) Musculoskeletal: reports: Back Pain (past one month) Integumentary: reports: No Symptoms Reported Neuro: reports: Tremors Endocrine: reports: No Symptoms Reported Hematology: reports: No Symptoms Reported Psychiatric: reports: No Sypmtoms Reported Patient History - Patient Medical History Hx Anemia: No Hx Asthma: No Hx Chronic Obstructive Pulmonary Disease (COPD): No Hx Cancer: No Hx Cardiac Disorders: Yes (Pt had an aortic dissection x2) Hx Congestive Heart Failure: No Hx Hypertension: Yes (on meds.) Hx Hypercholesterolemia: No Hx Pacemaker: No HX Cerebrovascular Accident: No Hx Seizures: No Hx Dementia: No Hx Diabetes: No Hx Gastrointestinal Disorders: No Hx Liver Disease: No Hx Genitourinary Disorders: No Hx Sexually Transmitted Disorders: No Hx Renal Disease (ESRD): No Hx Thyroid Disease: No Hx Human Immunodeficiency Virus (HIV): No (Last Tested Many Years Ago: NEGATIV E.) Hx Hepatitis C: No (Last Tested Many Years Ago: NEGATIVE.) Hx Depression: Yes (No Previous Treatment.) Hx Suicide Attempt: No (PATIENT DENIES CURRENT SI / HI.) Hx Bipolar Disorder: No Hx Schizophrenia: No - Patient Surgical History Past Surgical History: Yes Hx Neurologic Surgery: No Hx Cataract Extraction: No Hx Cardiac Surgery: Yes (Aortic dissection repair in 2017 and 2014) Hx Lung Surgery: No Hx Breast Surgery: No Hx Breast Biopsy: No Hx Abdominal Surgery: No Hx Appendectomy: No Hx Cholecystectomy: Yes (Unable to Recall Year.) Hx Genitourinary Surgery: Yes (Sx for kidney stones stent placement, > 10 years ago.) Hx Section: No Hx Orthopedic Surgery: No Other Surgical History: DENIES. Anesthesia Reaction: No - Smoking Cessation Smoking history: Never smoked Aproximately how many cigarettes per day: 0 Cigars Per Day: 0 Hx Chewing Tobacco Use: No Admission Physical Exam [facility] - Physical General Appearance: Yes: Within Normal Limits HEENTM: Yes: EOMI, Hearing grossly Normal, Normocephalic, Normal Voice Respiratory: Yes: Lungs Clear, Normal Breath Sounds, No Respiratory Distress, No Accessory Muscle Use, Surgical Scar (left subscapular) Neck: Yes: Within Normal Limits, Supple Breast: Yes: Breast Exam Deferred Cardiology: Yes: Regular Rhythm, Regular Rate, S1, S2 Abdominal: Yes: Normal Bowel Sounds, Non Tender, Flat, Soft Back: Yes: Normal Inspection Musculoskeletal: Yes: Gait Steady Extremities: Yes: Normal Inspection, Non-Tender Neurological: Yes: Alert, Normal Mood/Affect, Normal Response Integumentary: Yes: Within Normal Limits - Diagnostic (1) Opioid dependence with withdrawal Current Visit: Yes Status: Acute (2) PCP (phencyclidine) abuse Current Visit: Yes Status: Acute (3) History of aortic dissection Current Visit: No Status: Chronic Comment: X 2 (2014, 2016). (4) Hypertension Current Visit: Yes Status: Chronic Qualifiers: Hypertension type: essential hypertension Qualified Code(s): I10 - Essential (primary) hypertension Cleared for Admission S - Detox or Rehab [facility] Level of Care: Medically Managed Detox Regimen/Protocol: Methadone Inpatient Rehab Admission - Rehab Decision to Admit Inpatient rehab admission?: No
[2020-05-19 10:42] VITALS: BMI 28.7
[2020-05-19] MEDS ORDERED: hydrOXYzine PAMOATE 25 MG CAPSULE (FP) PO SCH (14:00)
[2020-05-19 15:08] LABS: HEMATOCRIT 33.2 % (35.4-49); HEMOGLOBIN 10.3 GM/dL (11.7-16.9); MCH 25.3 pg (25.7-33.7); MEAN CELL VOLUME 81.6 fl (80-96); MEAN PLT VOLUME 8.7 fl (7.5-11.1); PLATELET COUNT 133 K/MM3 (134-434); RBC 4.07 M/mm3 (4.00-5.60); RDW 16.9 % (11.9-15.9); WHITE BLOOD COUNT 4.7 K/mm3 (4.0-10.0)
[2020-05-19 15:21] LABS: ALBUMIN 3.8 g/dl (3.4-5.0); BILIRUBIN,TOTAL 0.6 mg/dL (0.2-1); BLOOD UREA NITROGEN 38.4 mg/dL (7-18); CALCIUM 7.5 mg/dL (8.5-10.1); CREATININE 2.4 mg/dL (0.55-1.3); POTASSIUM 4.9 mmol/L (3.5-5.1); TOT PROT 7.7 g/dl (6.4-8.2)
--- NOTE | 2020-05-19 16:26 | EKG ---
Test Reason : Blood Pressure : / mmHG Vent. Rate : 057 BPM Atrial Rate : 057 BPM P-R Int : 188 ms QRS Dur : 106 ms QT Int : 424 ms P-R-T Axes : 046 037 042 degrees QTc Int : 412 ms SINUS BRADYCARDIA MODERATE VOLTAGE CRITERIA FOR LVH, MAY BE NORMAL VARIANT BORDERLINE ECG WHEN COMPARED WITH ECG OF 10-JAN-2019 18:35, NO SIGNIFICANT CHANGE WAS FOUND Confirmed by MILTON FINCH MD ([id number]) on 05/19/2020 4:25:38 PM Referred By: Confirmed By:MILTON FINCH MD
[2020-05-19] MEDS: ACETAMINOPHEN 325 MG TABLET (FP) PO PRN (19:58)
[2020-05-19] MEDS: THIAMINE HCL 100 MG TABLET (FP) PO SCH (22:12)
[2020-05-19] MEDS: ATORVASTATIN CA 20 MG TABLET (FP) PO SCH (22:12)
[2020-05-19] MEDS: MELATONIN 5 MG TABLETS PO SCH (22:12)
[2020-05-19] MEDS: diazePAM 5 MG TABLET PO PRN (22:12)
[2020-05-20] MEDS ORDERED: METHADONE HCL 5 MG TABLET (FOR DETOX USE ONLY) ONE (09:47)
[2020-05-20] MEDS ORDERED: METHADONE HCL 10 MG TABLET (FOR DETOX USE ONLY) ONE (09:47)
[2020-05-20] MEDS ORDERED: METHADONE (DETOX) 20 MG, METHADONE (DETOX) 5 MG PO ONE (10:00)
--- NOTE | 2020-05-20 10:11 | PN ---
S CIWA - CIWA Score Nausea/Vomitin-No Nausea/No Vomiting Muscle Tremors: 3 Anxiety: 3 Agitation: 3 Paroxysmal Sweats: 3 Orientation: 0-Oriented Tacttile Disturbances: 0-None Auditory Disturbances: 0-None Visual Disturbances: 0-None Headache: 0-None Present CIWA-Ar Total Score: 12 S Progress Note (SOAP) Subjective: sweats irritable agitation body aches I want ensure supplement Objective: 05/20/20 10:09 Vital Signs Temperature 97.1 F L 05/20/20 08:44 Pulse Rate 58 L 05/20/20 08:44 Respiratory Rate 16 05/20/20 08:44 Blood Pressure 135/88 05/20/20 08:44 O2 Sat by Pulse Oximetry (%) 98 05/20/20 05:28 Laboratory Tests 05/19/20 05/19/20 05/19/20 10:25 10:25 10:25 WBC 4.7 RBC 4.07 Hgb 10.3 L Hct 33.2 L D MCV 81.6 MCH 25.3 L MCHC 31.0 L RDW 16.9 H Plt Count 133 L D MPV 8.7 Sodium 137 Potassium 4.9 Chloride 109 H Carbon Dioxide 23 Anion Gap 5 L BUN 38.4 H Creatinine 2.4 H Est GFR (CKD-EPI)AfAm 33.22 Est GFR (CKD-EPI)NonAf 28.66 Random Glucose 127 H Calcium 7.5 L Total Bilirubin 0.6 AST 16 ALT 18 Alkaline Phosphatase 58 Total Protein 7.7 Albumin 3.8 Syphilis Serology Non-reactive COVID-19 (BRANDON) 05/19/20 11:50 WBC RBC Hgb Hct MCV MCH MCHC RDW Plt Count MPV Sodium Potassium Chloride Carbon Dioxide Anion Gap BUN Creatinine Est GFR (CKD-EPI)AfAm Est GFR (CKD-EPI)NonAf Random Glucose Calcium Total Bilirubin AST ALT Alkaline Phosphatase Total Protein Albumin Syphilis Serology COVID-19 (BRANDON) Not detected labs noted elevated BUN and Creatinine; encourage water intake repeat labs aaox3 ambulating no acute distress Assessment: 05/20/20 10:10 withdrawals Plan: continue detox increase fluids labs re-draw for saturday.
[2020-05-20] MEDS: PRENATAL VITAMINS W/ FOLIC ACID TABLET (FP) PO SCH (10:54)
[2020-05-20] MEDS: amLODIPine BESYLATE 10 MG TABLET (FP) PO SCH (10:54)
[2020-05-20] MEDS: ASPIRIN 81 MG CHEWABLE TABLETS PO SCH (10:54)
[2020-05-20] MEDS: ATORVASTATIN CA 20 MG TABLET (FP) PO SCH (21:21)
[2020-05-20] MEDS: THIAMINE HCL 100 MG TABLET (FP) PO SCH (21:21)
[2020-05-20] MEDS: diazePAM 5 MG TABLET PO PRN (21:24)
[2020-05-20] MEDS: MELATONIN 5 MG TABLETS PO SCH (21:24)
[2020-05-20] MEDS: ACETAMINOPHEN 325 MG TABLET (FP) PO PRN (22:39)
[2020-05-21] MEDS ORDERED: METHADONE HCL 10 MG TABLET (FOR DETOX USE ONLY) PO ONE (10:00)
[2020-05-21] MEDS: ASPIRIN 81 MG CHEWABLE TABLETS PO SCH (10:42)
[2020-05-21] MEDS: PRENATAL VITAMINS W/ FOLIC ACID TABLET (FP) PO SCH (10:42)
[2020-05-21] MEDS: amLODIPine BESYLATE 10 MG TABLET (FP) PO SCH (10:42)
[2020-05-21] MEDS: diazePAM 5 MG TABLET PO PRN ×2 (13:58→22:03)
[2020-05-21] MEDS: METHOCARBAMOL 500 MG TABLET PO PRN (13:58)
--- NOTE | 2020-05-21 17:33 | PN ---
[facility] CIWA - CIWA Score Nausea/Vomitin-No Nausea/No Vomiting Muscle Tremors: 2 Anxiety: 3 Agitation: 2 Paroxysmal Sweats: No Perspiration Orientation: 0-Oriented Tacttile Disturbances: 0-None Auditory Disturbances: 2-Mild Harshness/Frighten Visual Disturbances: 1-Very Mild Sensitivity Headache: 0-None Present CIWA-Ar Total Score: 10 S Progress Note (SOAP) Subjective: Body Aches, Anxious, Interrupted sleep. Objective: Patient A & O X 3, Observed Ambulating on Detox Unit Unassisted. In No Acute Distress. 05/21/20 17:35 Vital Signs Temperature 98.4 F 05/21/20 12:37 Pulse Rate 61 05/21/20 12:37 Respiratory Rate 18 05/21/20 12:37 Blood Pressure 136/90 05/21/20 12:37 O2 Sat by Pulse Oximetry (%) 100 05/21/20 05:28 Laboratory Tests 05/19/20 05/19/20 05/19/20 10:25 10:25 10:25 WBC 4.7 RBC 4.07 Hgb 10.3 L Hct 33.2 L D MCV 81.6 MCH 25.3 L MCHC 31.0 L RDW 16.9 H Plt Count 133 L D MPV 8.7 Sodium 137 Potassium 4.9 Chloride 109 H Carbon Dioxide 23 Anion Gap 5 L BUN 38.4 H Creatinine 2.4 H Est GFR (CKD-EPI)AfAm 33.22 Est GFR (CKD-EPI)NonAf 28.66 Random Glucose 127 H Calcium 7.5 L Total Bilirubin 0.6 AST 16 ALT 18 Alkaline Phosphatase 58 Total Protein 7.7 Albumin 3.8 Syphilis Serology Non-reactive COVID-19 (BRANDON) 05/19/20 11:50 WBC RBC Hgb Hct MCV MCH MCHC RDW Plt Count MPV Sodium Potassium Chloride Carbon Dioxide Anion Gap BUN Creatinine Est GFR (CKD-EPI)AfAm Est GFR (CKD-EPI)NonAf Random Glucose Calcium Total Bilirubin AST ALT Alkaline Phosphatase Total Protein Albumin Syphilis Serology COVID-19 (BRANDON) Not detected Lab Results noted. 05/21/20 17:40 Assessment: 05/21/20 17:40 WITHDRAWAL SYMPTOMS. ANEMIA. THROMBOCYTOPENIA. AZOTEMIA. 05/21/20 17:42 Plan: Continue Detox. Increase Daily Oral Water Intake. D/C Ibuprofen and Magnesium-Containing Meds. for Abnormal Admission Renal Lab Values. Lidoderm Patch for Lower Back Pain. Patient is currently receiving daily MVI containing B Vitamins and Iron while admitted for Detox.
[2020-05-21] MEDS: LIDOCAINE 5% TOPICAL PATCH TP SCH (17:48)
[2020-05-21] MEDS: THIAMINE HCL 100 MG TABLET (FP) PO SCH (22:00)
[2020-05-21] MEDS: CALCIUM 500MG/VIT-D 200 UNITS COMBO TABLET (FP) PO SCH (22:00)
[2020-05-21] MEDS: ATORVASTATIN CA 20 MG TABLET (FP) PO SCH (22:01)
[2020-05-21] MEDS: MELATONIN 5 MG TABLETS PO SCH (22:01)
[2020-05-22] MEDS: LIDOCAINE PATCH REMOVAL MC SCH (06:12)
[2020-05-22] MEDS ORDERED: METHADONE HCL 5 MG TABLET (FOR DETOX USE ONLY) ONE (08:36)
[2020-05-22] MEDS ORDERED: METHADONE HCL 10 MG TABLET (FOR DETOX USE ONLY) ONE (08:36)
[2020-05-22] MEDS ORDERED: METHADONE (DETOX) 10 MG, METHADONE (DETOX) 5 MG PO ONE (10:00)
[2020-05-22] MEDS: METHOCARBAMOL 500 MG TABLET PO PRN (10:02)
[2020-05-22] MEDS: CALCIUM 500MG/VIT-D 200 UNITS COMBO TABLET (FP) PO SCH ×2 (10:02→22:23)
[2020-05-22] MEDS: ASPIRIN 81 MG CHEWABLE TABLETS PO SCH (10:02)
[2020-05-22] MEDS: amLODIPine BESYLATE 10 MG TABLET (FP) PO SCH (10:02)
[2020-05-22] MEDS: PRENATAL VITAMINS W/ FOLIC ACID TABLET (FP) PO SCH (10:03)
[2020-05-22] MEDS: diazePAM 5 MG TABLET PO PRN (10:05)
[2020-05-22 12:34] LABS: BASO % 0.3 % (0-2.0); EOS % 2.5 % (0-4.5); HEMATOCRIT 33.3 % (35.4-49); HEMOGLOBIN 10.6 GM/dL (11.7-16.9); LYMPH % 22.4 % (8-40); MCH 26.1 pg (25.7-33.7); MEAN CELL VOLUME 81.8 fl (80-96); MEAN PLT VOLUME 8.9 fl (7.5-11.1); MONO % 15.8 % (3.8-10.2); PLATELET COUNT 120 K/MM3 (134-434); RBC 4.07 M/mm3 (4.00-5.60); RDW 16.2 % (11.9-15.9); WHITE BLOOD COUNT 4.6 K/mm3 (4.0-10.0)
[2020-05-22 12:40] LABS: ALBUMIN 3.2 g/dl (3.4-5.0); BILIRUBIN,TOTAL 0.4 mg/dL (0.2-1); BLOOD UREA NITROGEN 24.3 mg/dL (7-18); CALCIUM 9.8 mg/dL (8.5-10.1); CREATININE 1.3 mg/dL (0.55-1.3); POTASSIUM 5.2 mmol/L (3.5-5.1); TOT PROT 7.1 g/dl (6.4-8.2)
--- NOTE | 2020-05-22 14:20 | PN ---
BHS COWS - Scale Resting Pulse: 0= [place] 80 or Below Sweatin= Chills/Flushing Restless Observation: 0= Sits Still Pupil Size: 0= Normal to Room Light Bone or Joint Aches: 1= Mild Discomfort Runny Nose/ Eye Tearin= None GI Upset > 30mins: 1= Stomach Cramp Tremor Observation of Outstretched Hands: 2= Slight Tremor Visible Yawning Observation: 0= None Anxiety or Irritability: 2=Irritable/Anxious Goose Flesh Skin: 0=Smooth Skin COWS Score: 7 BHS Progress Note (SOAP) Subjective: Back pain, patient stated he has h/o back pain due to aneurysm Objective: 05/22/20 14:16 Last Vital Signs Temp Pulse Resp BP Pulse Ox 97.3 F L 59 L 18 132/90 100 05/22/20 12:42 05/22/20 12:42 05/22/20 12:42 05/22/20 12:42 05/22/20 12:42 Elevated b/p noted; has htn (on medication) Laboratory Tests 05/19/20 05/19/20 05/19/20 10:25 10:25 10:25 WBC 4.7 RBC 4.07 Hgb 10.3 L Hct 33.2 L D MCV 81.6 MCH 25.3 L MCHC 31.0 L RDW 16.9 H Plt Count 133 L D MPV 8.7 Absolute Neuts (auto) Neutrophils % Lymphocytes % Monocytes % Eosinophils % Basophils % Nucleated RBC % Sodium 137 Potassium 4.9 Chloride 109 H Carbon Dioxide 23 Anion Gap 5 L BUN 38.4 H Creatinine 2.4 H Est GFR (CKD-EPI)AfAm 33.22 Est GFR (CKD-EPI)NonAf 28.66 Random Glucose 127 H Calcium 7.5 L Total Bilirubin 0.6 AST 16 ALT 18 Alkaline Phosphatase 58 Total Protein 7.7 Albumin 3.8 Syphilis Serology Non-reactive COVID-19 (BRANDON) 05/19/20 05/22/20 05/22/20 11:50 07:20 07:20 WBC 4.6 RBC 4.07 Hgb 10.6 L Hct 33.3 L MCV 81.8 MCH 26.1 MCHC 32.0 RDW 16.2 H Plt Count 120 L MPV 8.9 Absolute Neuts (auto) 2.7 Neutrophils % 59.0 Lymphocytes % 22.4 Monocytes % 15.8 H Eosinophils % 2.5 Basophils % 0.3 Nucleated RBC % 0 Sodium 137 Potassium 5.2 H Chloride 106 Carbon Dioxide 29 Anion Gap 2 L BUN 24.3 H Creatinine 1.3 Est GFR (CKD-EPI)AfAm 69.71 Est GFR (CKD-EPI)NonAf 60.14 Random Glucose 93 Calcium 9.8 Total Bilirubin 0.4 AST 23 ALT 17 Alkaline Phosphatase 52 Total Protein 7.1 Albumin 3.2 L Syphilis Serology COVID-19 (BRANDON) Not detected Labs reviewed: noted with azotemia, hyperkalemia, thrombocytopenia, anemia and hypoalbuminemia Assessment: 05/22/20 14:20 Withdrawal sxs Noted with azotemia, hyperkalemia, thrombocytopenia, anemia and hypoalbuminemia Plan: Continue detox Encourage PO water intake Azotemia: secondary to GERALD, improving, encourage to drink more water, repeat BMP Hyperkalemia, mild: asymptomatic, repeat serum K level Thrombocytopenia: most likely due to substance use, encourage abstinence, follow up with PCP for management Anemia: most likely due to substance use, continue vitamins, follow up with PCP for management Hypoalbuminemia: encourage diet
[2020-05-22] MEDS: LIDOCAINE 5% TOPICAL PATCH TP SCH (17:41)
[2020-05-22] MEDS: ATORVASTATIN CA 20 MG TABLET (FP) PO SCH (22:23)
[2020-05-22] MEDS: MELATONIN 5 MG TABLETS PO SCH (22:23)
[2020-05-22] MEDS: THIAMINE HCL 100 MG TABLET (FP) PO SCH (22:23)
[2020-05-23] MEDS: LIDOCAINE PATCH REMOVAL MC SCH (06:56)
[2020-05-23] MEDS ORDERED: METHADONE HCL 10 MG TABLET (FOR DETOX USE ONLY) PO ONE (10:00)
--- NOTE | 2020-05-23 10:05 | PN ---
BHS COWS - Scale Resting Pulse: 0= [place] 80 or Below Sweatin= No chills or Flushing Restless Observation: 1= Difficult to Sit Still Pupil Size: 0= Normal to Room Light Bone or Joint Aches: 2= Severe Diffuse Aches Runny Nose/ Eye Tearin= None GI Upset > 30mins: 0= None Tremor Observation of Outstretched Hands: 0= None Yawning Observation: 0= None Anxiety or Irritability: 1=Feels Anxious/Irritable Goose Flesh Skin: 0=Smooth Skin COWS Score: 4 S Progress Note (SOAP) Subjective: I had gout in the past and was taking medication for it. I feel like I am getting the same foot pain on my joints similar to the gout. sweats right foot/toe pain Objective: 05/23/20 10:03 Vital Signs Temperature 96.9 F L 05/23/20 08:25 Pulse Rate 79 05/23/20 08:25 Respiratory Rate 18 05/23/20 08:25 Blood Pressure 142/91 05/23/20 08:25 O2 Sat by Pulse Oximetry (%) 99 05/23/20 05:25 Laboratory Tests 05/19/20 05/19/20 05/19/20 10:25 10:25 10:25 WBC 4.7 RBC 4.07 Hgb 10.3 L Hct 33.2 L D MCV 81.6 MCH 25.3 L MCHC 31.0 L RDW 16.9 H Plt Count 133 L D MPV 8.7 Absolute Neuts (auto) Neutrophils % Lymphocytes % Monocytes % Eosinophils % Basophils % Nucleated RBC % Sodium 137 Potassium 4.9 Chloride 109 H Carbon Dioxide 23 Anion Gap 5 L BUN 38.4 H Creatinine 2.4 H Est GFR (CKD-EPI)AfAm 33.22 Est GFR (CKD-EPI)NonAf 28.66 Random Glucose 127 H Calcium 7.5 L Total Bilirubin 0.6 AST 16 ALT 18 Alkaline Phosphatase 58 Total Protein 7.7 Albumin 3.8 Syphilis Serology Non-reactive COVID-19 (BRANDON) 05/19/20 05/22/20 05/22/20 11:50 07:20 07:20 WBC 4.6 RBC 4.07 Hgb 10.6 L Hct 33.3 L MCV 81.8 MCH 26.1 MCHC 32.0 RDW 16.2 H Plt Count 120 L MPV 8.9 Absolute Neuts (auto) 2.7 Neutrophils % 59.0 Lymphocytes % 22.4 Monocytes % 15.8 H Eosinophils % 2.5 Basophils % 0.3 Nucleated RBC % 0 Sodium 137 Potassium 5.2 H Chloride 106 Carbon Dioxide 29 Anion Gap 2 L BUN 24.3 H Creatinine 1.3 Est GFR (CKD-EPI)AfAm 69.71 Est GFR (CKD-EPI)NonAf 60.14 Random Glucose 93 Calcium 9.8 Total Bilirubin 0.4 AST 23 ALT 17 Alkaline Phosphatase 52 Total Protein 7.1 Albumin 3.2 L Syphilis Serology COVID-19 (BRANDON) Not detected labs noted repeated labs pending aaox3 ambulating no acute distress Assessment: 05/23/20 10:04 withdrawals Plan: checked out pt outside medication and pt was taking colchicine 0.6mg a year ago. pt is non-compliant will order medication while in our facility continue detox encourage water intake pending labs. d/c in am
[2020-05-23] MEDS: CALCIUM 500MG/VIT-D 200 UNITS COMBO TABLET (FP) PO SCH ×2 (10:20→21:18)
[2020-05-23] MEDS: amLODIPine BESYLATE 10 MG TABLET (FP) PO SCH (10:20)
[2020-05-23] MEDS: PRENATAL VITAMINS W/ FOLIC ACID TABLET (FP) PO SCH (10:20)
[2020-05-23] MEDS: ASPIRIN 81 MG CHEWABLE TABLETS PO SCH (10:20)
[2020-05-23] MEDS: METHOCARBAMOL 500 MG TABLET PO PRN (10:23)
[2020-05-23] MEDS: METHYL SALICYLATE/MENTHOL OINT 30 GM TUBE TP SCH ×2 (15:09→21:19)
[2020-05-23] MEDS: COLCHICINE 0.6 MG CAP PO SCH (15:09)
[2020-05-23 16:30] LABS: BLOOD UREA NITROGEN 24.4 mg/dL (7-18); CALCIUM 9.9 mg/dL (8.5-10.1); CREATININE 1.4 mg/dL (0.55-1.3)
[2020-05-23] MEDS: LIDOCAINE 5% TOPICAL PATCH TP SCH (17:21)
[2020-05-23] MEDS: MELATONIN 5 MG TABLETS PO SCH (21:18)
[2020-05-23] MEDS: THIAMINE HCL 100 MG TABLET (FP) PO SCH (21:18)
[2020-05-23] MEDS: ATORVASTATIN CA 20 MG TABLET (FP) PO SCH (21:18)
[2020-05-24] MEDS ORDERED: METHADONE HCL 5 MG TABLET (FOR DETOX USE ONLY) PO ONE (06:00)
[2020-05-24] MEDS: LIDOCAINE PATCH REMOVAL MC SCH (06:16)
--- NOTE | 2020-05-24 09:29 | DS ---
[facility] Detox Discharge Summary Admission Date: 05/19/20 Discharge Date: 05/24/20 - History Present History: Opioid Dependence Additional Comments: alert,oriented x3 ambulatory on the unit lung clear bilaterally on auscultation abdomen soft,no distension,no pain ,no tenderness extremities no swelling no withdrawal symptom stable for discharge today follow up with after care program as arrangement ,[facility] rehab total of discharge spending 35 minutes Pertinent Past History: hypercholesterolemia hypertension dissection of aortic aneurysm kidney stone - Physical Exam Results Vital Signs: Vital Signs Temperature 96.8 F L 05/24/20 09:05 Pulse Rate 109 H 05/24/20 09:05 Respiratory Rate 18 05/24/20 09:05 Blood Pressure 136/82 05/24/20 09:05 O2 Sat by Pulse Oximetry (%) 97 05/24/20 05:17 Pertinent Admission Physical Exam Findings: withdrawal signs and symptom Vital Signs Temperature 96.8 F L 05/24/20 09:05 Pulse Rate 109 H 05/24/20 09:05 Respiratory Rate 18 05/24/20 09:05 Blood Pressure 136/82 05/24/20 09:05 O2 Sat by Pulse Oximetry (%) 97 05/24/20 05:17 Laboratory Last Values WBC 4.6 K/mm3 (4.0-10.0) 05/22/20 07:20 RBC 4.07 M/mm3 (4.00-5.60) 05/22/20 07:20 Hgb 10.6 GM/dL (11.7-16.9) L 05/22/20 07:20 Hct 33.3 % (35.4-49) L 05/22/20 07:20 MCV 81.8 fl (80-96) 05/22/20 07:20 MCH 26.1 pg (25.7-33.7) 05/22/20 07:20 MCHC 32.0 g/dl (32.0-35.9) 05/22/20 07:20 RDW 16.2 % (11.9-15.9) H 05/22/20 07:20 Plt Count 120 K/MM3 (134-434) L 05/22/20 07:20 MPV 8.9 fl (7.5-11.1) 05/22/20 07:20 Absolute Neuts (auto) 2.7 K/mm3 (1.5-8.0) 05/22/20 07:20 Neutrophils % 59.0 % (42.8-82.8) 05/22/20 07:20 Lymphocytes % 22.4 % (8-40) 05/22/20 07:20 Monocytes % 15.8 % (3.8-10.2) H 05/22/20 07:20 Eosinophils % 2.5 % (0-4.5) 05/22/20 07:20 Basophils % 0.3 % (0-2.0) 05/22/20 07:20 Nucleated RBC % 0 % (0-0) 05/22/20 07:20 Sodium 138 mmol/L (136-145) 05/23/20 10:40 Potassium 5.0 mmol/L (3.5-5.1) 05/23/20 10:40 Chloride 105 mmol/L (98-107) 05/23/20 10:40 Carbon Dioxide 29 mmol/L (21-32) 05/23/20 10:40 Anion Gap 4 MMOL/L (8-16) L 05/23/20 10:40 BUN 24.4 mg/dL (7-18) H 05/23/20 10:40 Creatinine 1.4 mg/dL (0.55-1.3) H 05/23/20 10:40 Est GFR (CKD-EPI)AfAm 63.73 05/23/20 10:40 Est GFR (CKD-EPI)NonAf 54.99 05/23/20 10:40 Random Glucose 90 mg/dL (74-106) 05/23/20 10:40 Calcium 9.9 mg/dL (8.5-10.1) 05/23/20 10:40 Total Bilirubin 0.4 mg/dL (0.2-1) 05/22/20 07:20 AST 23 U/L (15-37) 05/22/20 07:20 ALT 17 U/L (13-61) 05/22/20 07:20 Alkaline Phosphatase 52 U/L (45-117) 05/22/20 07:20 Total Protein 7.1 g/dl (6.4-8.2) 05/22/20 07:20 Albumin 3.2 g/dl (3.4-5.0) L 05/22/20 07:20 Syphilis Serology Non-reactive (NONREACTIVE) 05/19/20 10:25 COVID-19 (BRANDON) Not detected (Not Detected) 05/19/20 11:50 - Treatment Hospital Course: Detox Protocol Followed, Detoxed Safely, Responded well, Discharged Condition Good, Rehab Referral Accepted Patient has Accepted a Rehab Referral to: [facility] - Medication Discharge Medications: Ambulatory Orders Amlodipine Besylate [Norvasc -] 10 mg PO DAILY 12/20/17 Aspirin [ASA -] 81 mg PO DAILY 12/20/17 Atorvastatin Ca [Lipitor] 20 mg PO HS 12/20/17 Labetalol HCl [Normodyne -] 400 mg PO TID 12/20/17 Zolpidem Tartrate [Ambien] 10 mg PO HS 12/20/17 - Diagnosis (1) Opioid dependence with withdrawal Current Visit: Yes Status: Acute (2) PCP (phencyclidine) abuse Current Visit: Yes Status: Acute (3) Hypertension Current Visit: Yes Status: Chronic Qualifiers: Hypertension type: essential hypertension Qualified Code(s): I10 - Essential (primary) hypertension (4) History of aortic dissection Current Visit: No Status: Chronic - AMA Did Patient Leave Against Medical Advice: No
--- NOTE | 2020-05-24 09:29 | PN ---
[facility] CIWA - CIWA Score Nausea/Vomitin-No Nausea/No Vomiting Muscle Tremors: None Anxiety: 1-Mildly Anxious Agitation: 0-Normal Activity Paroxysmal Sweats: No Perspiration Orientation: 0-Oriented Tacttile Disturbances: 0-None Auditory Disturbances: 0-None Visual Disturbances: 0-None Headache: 0-None Present CIWA-Ar Total Score: 1 [facility] Progress Note (SOAP) Subjective: alert,no complaint Objective: 05/24/20 09:25 Vital Signs Temperature 96.8 F L 05/24/20 09:05 Pulse Rate 109 H 05/24/20 09:05 Respiratory Rate 18 05/24/20 09:05 Blood Pressure 136/82 05/24/20 09:05 O2 Sat by Pulse Oximetry (%) 97 05/24/20 05:17 05/24/20 09:26 Laboratory Results - last 24 hr 05/23/20 10:40 Sodium 138 Potassium 5.0 Chloride 105 Carbon Dioxide 29 Anion Gap 4 L BUN 24.4 H Creatinine 1.4 H Est GFR (CKD-EPI)AfAm 63.73 Est GFR (CKD-EPI)NonAf 54.99 Random Glucose 90 Calcium 9.9 Assessment: 05/24/20 09:28 detox completed,no withdrawal symptom Plan: discharge today,follow up with [facility] as arrangement
[2020-05-24] MEDS: COLCHICINE 0.6 MG CAP PO SCH (10:04)
[2020-05-24] MEDS: METHYL SALICYLATE/MENTHOL OINT 30 GM TUBE TP SCH (10:05)
[2020-05-24] MEDS: PRENATAL VITAMINS W/ FOLIC ACID TABLET (FP) PO SCH (10:05)
[2020-05-24] MEDS: ASPIRIN 81 MG CHEWABLE TABLETS PO SCH (10:05)
[2020-05-24] MEDS: amLODIPine BESYLATE 10 MG TABLET (FP) PO SCH (10:05)
[2020-05-24] MEDS: CALCIUM 500MG/VIT-D 200 UNITS COMBO TABLET (FP) PO SCH (10:06)
--- NOTE | 2020-05-24 13:28 | PN ---
S Progress Note Note: [facility]
[2020-05-24 13:59] VITALS: BP 138/85; PULSE 80; TEMP 97.1
[2020-05-24] MEDS ORDERED: LABETALOL HCL 200 MG TABLET (FP) PO SCH (14:00)
== END 2020-05-24 13:53 | disposition other institution (70) | DRG 773 ==
LOC: YASAS 09:25 → Y6N 10:37
PROVIDERS: ADMIT Allergy & Immunology; ATTEND Allergy & Immunology
PROC: HZ2ZZZZ Detoxification Services for Substance Abuse Treatment (ICD-10-PCS; principal; 2020-05-19)
DX: F11.23 Opioid dependence with withdrawal (principal); F16.20 Hallucinogen dependence, uncomplicated; I10 Essential (primary) hypertension; R79.89 Other specified abnormal findings of blood chemistry; E87.5 Hyperkalemia; D69.6 Thrombocytopenia, unspecified; D64.9 Anemia, unspecified; R77.0 Abnormality of albumin; Z88.8 Allergy status to other drugs, medicaments and biological substances; Z86.79 Personal history of other diseases of the circulatory system
CPT/HCPCS: 36415; 71045-TC-FY; 80048; 80053; 85025; 85027; 86780; 93005; 93010; U0003

== ENCOUNTER 2020-05-24 12:25 | Inpatient (IN) | payer OTHER ==
--- NOTE | 2020-05-24 14:06 | HP ---
[facility] Rehab Assess/Revision - Admission History Admitted to Rehab from: [facility] Date of Admission to Rehab: 05/24/2020 - Findings Detox History & Physical reviewed: Yes Concur with findings: Yes Comments/Additional Findings: for rehab as protocol Inpatient Rehab Admission - Rehab Decision to Admit Inpatient rehab admission?: Yes - Initial Determination Are CD services needed?: Yes Free of communicable disease: Yes Not in need of hospitalization: Yes - Rehab Admission Criteria Previous failed treatment: Yes Poor recovery environment: Yes Comorbidities: Yes Lacks judgement: No Patient is meeting Inpatient Rehab admission criteria:: Yes
[2020-05-24] MEDS ORDERED: P-EPHED 60MG/TRIPROLIDI 2.5MG TABLET PO PRN (14:18)
[2020-05-24] MEDS ORDERED: MAGNESIUM HYDROX 2400MG/30ML ORAL SUSPENSION 30 ML CUP PO PRN (14:18)
[2020-05-24] MEDS ORDERED: NICOTINE POLACRILEX 2 MG GUM BUC PRN (14:18)
[2020-05-24] MEDS ORDERED: IBUPROFEN 400 MG TABLET (FP) PO PRN (14:18)
[2020-05-24] MEDS ORDERED: LOPERAMIDE HCL 2 MG CAPSULE PO PRN (14:18)
[2020-05-24] MEDS ORDERED: guaiFENesin 200 MG/10 ML 10 ML UNIT-DOSE CUPS PO PRN (14:18)
[2020-05-24] MEDS ORDERED: MAG HYDROX/AL HYDROX/SIMETH 30 ML UNIT-DOSE CUP PO PRN (14:18)
[2020-05-24] MEDS ORDERED: ACETAMINOPHEN 325 MG TABLET (FP) PO PRN (14:18)
[2020-05-24] MEDS ORDERED: MAGNESIUM CITRATE 300 ML BOTTLE PO PRN (14:18)
[2020-05-24] MEDS ORDERED: MENTHOL/PHENOL 1 EACH UD MM PRN (14:18)
[2020-05-24] MEDS: LIDOCAINE 5% TOPICAL PATCH TP SCH (15:28)
[2020-05-24] MEDS: METHYL SALICYLATE/MENTHOL OINT 30 GM TUBE TP SCH (21:43)
[2020-05-24] MEDS: LABETALOL HCL 200 MG TABLET (FP) PO SCH (21:44)
[2020-05-24] MEDS: hydrOXYzine PAMOATE 25 MG CAPSULE (FP) PO PRN (21:44)
[2020-05-24] MEDS: ATORVASTATIN CA 20 MG TABLET (FP) PO SCH (21:44)
[2020-05-24] MEDS: THIAMINE HCL 100 MG TABLET (FP) PO SCH (21:45)
[2020-05-24] MEDS: MELATONIN 5 MG TABLETS PO SCH (21:45)
[2020-05-24] MEDS: LIDOCAINE PATCH REMOVAL MC SCH (21:46)
[2020-05-24] MEDS: CALCIUM 500MG/VIT-D 200 UNITS COMBO TABLET (FP) PO SCH (21:46)
[2020-05-25] MEDS ORDERED: PT OWN MED DRAWER 7, Y5N ONE ×3 (03:06→19:19)
[2020-05-25] MEDS: LABETALOL HCL 200 MG TABLET (FP) PO SCH ×3 (06:22→21:28)
[2020-05-25] MEDS: PRENATAL VITAMINS W/ FOLIC ACID TABLET (FP) PO SCH (09:54)
[2020-05-25] MEDS: LIDOCAINE 5% TOPICAL PATCH TP SCH (09:54)
[2020-05-25] MEDS: ASPIRIN 81 MG CHEWABLE TABLETS PO SCH (09:54)
[2020-05-25] MEDS: CALCIUM 500MG/VIT-D 200 UNITS COMBO TABLET (FP) PO SCH ×2 (09:55→21:27)
[2020-05-25] MEDS: METHYL SALICYLATE/MENTHOL OINT 30 GM TUBE TP SCH (09:56)
[2020-05-25] MEDS: COLCHICINE 0.6 MG CAP PO SCH (09:56)
[2020-05-25] MEDS: amLODIPine BESYLATE 10 MG TABLET (FP) PO SCH (09:56)
[2020-05-25] MEDS ORDERED: NICOTINE 7 MG/24 HOURS TOPICAL PATCH TD SCH (10:00)
[2020-05-25] MEDS: ATORVASTATIN CA 20 MG TABLET (FP) PO SCH (21:27)
[2020-05-25] MEDS: MELATONIN 5 MG TABLETS PO SCH (21:27)
[2020-05-25] MEDS: THIAMINE HCL 100 MG TABLET (FP) PO SCH (21:27)
[2020-05-25] MEDS: LIDOCAINE PATCH REMOVAL MC SCH (21:28)
[2020-05-26] MEDS ORDERED: PT OWN MED DRAWER 7, Y5N ONE ×2 (03:08→08:10)
[2020-05-26] MEDS: LABETALOL HCL 200 MG TABLET (FP) PO SCH ×3 (06:40→21:10)
[2020-05-26] MEDS: COLCHICINE 0.6 MG CAP PO SCH (09:33)
[2020-05-26] MEDS: ASPIRIN 81 MG CHEWABLE TABLETS PO SCH (09:33)
[2020-05-26] MEDS: METHYL SALICYLATE/MENTHOL OINT 30 GM TUBE TP SCH (09:33)
[2020-05-26] MEDS: CALCIUM 500MG/VIT-D 200 UNITS COMBO TABLET (FP) PO SCH ×2 (09:34→21:11)
[2020-05-26] MEDS: amLODIPine BESYLATE 10 MG TABLET (FP) PO SCH (09:34)
[2020-05-26] MEDS: LIDOCAINE 5% TOPICAL PATCH TP SCH (09:34)
[2020-05-26] MEDS: PRENATAL VITAMINS W/ FOLIC ACID TABLET (FP) PO SCH (09:34)
[2020-05-26] MEDS: ATORVASTATIN CA 20 MG TABLET (FP) PO SCH (21:09)
[2020-05-26] MEDS: THIAMINE HCL 100 MG TABLET (FP) PO SCH (21:09)
[2020-05-26] MEDS: MELATONIN 5 MG TABLETS PO SCH (21:09)
[2020-05-26] MEDS: hydrOXYzine PAMOATE 25 MG CAPSULE (FP) PO PRN (21:09)
[2020-05-26] MEDS: LIDOCAINE PATCH REMOVAL MC SCH (21:11)
[2020-05-27] MEDS ORDERED: PT OWN MED DRAWER 7, Y5N ONE ×2 (05:10→08:50)
[2020-05-27] MEDS: LABETALOL HCL 200 MG TABLET (FP) PO SCH ×3 (06:24→21:33)
[2020-05-27] MEDS: LIDOCAINE 5% TOPICAL PATCH TP SCH (09:30)
[2020-05-27] MEDS: METHYL SALICYLATE/MENTHOL OINT 30 GM TUBE TP SCH (09:31)
[2020-05-27] MEDS: amLODIPine BESYLATE 10 MG TABLET (FP) PO SCH (09:31)
[2020-05-27] MEDS: ASPIRIN 81 MG CHEWABLE TABLETS PO SCH (09:31)
[2020-05-27] MEDS: CALCIUM 500MG/VIT-D 200 UNITS COMBO TABLET (FP) PO SCH ×2 (09:31→21:33)
[2020-05-27] MEDS: PRENATAL VITAMINS W/ FOLIC ACID TABLET (FP) PO SCH (09:32)
[2020-05-27] MEDS ORDERED: BUPRENORPHINE/NALOXONE 4 MG/1 MG FILM PACKET SL ONE (11:15)
[2020-05-27] MEDS: COLCHICINE 0.6 MG CAP PO SCH (11:28)
--- NOTE | 2020-05-27 13:19 | PN ---
[facility] Progress Note Note: PATIENT EVALUATED FOR SUBOXONE MAT FOR OPIOD DEPENDENCE. PATIENT COMPLETED DETOX AT [facility] 05/24/2020. INHALES 2-3 BAGS OF HEROIN DAILY. ROS: C/O OPIOD CRAVINGS, CHILLS AND RESTLESSNESS. Vital Signs (72 hours) 05/24/20 05/24/20 05/24/20 14:00 14:28 19:40 Temperature 98.2 F 97.3 F L Pulse Rate 81 74 Respiratory 18 18 Rate Blood Pressure 131/86 114/79 O2 Sat by Pulse 97 96 Oximetry (%) 05/25/20 05/25/20 05/25/20 05:40 10:00 15:56 Temperature 97.5 F L Pulse Rate 78 60 Respiratory 18 Rate Blood Pressure 118/73 104/63 O2 Sat by Pulse 99 95 Oximetry (%) 05/25/20 05/26/20 05/26/20 19:25 06:45 10:00 Temperature 98.0 F 97.5 F L Pulse Rate 89 77 81 Respiratory 18 18 Rate Blood Pressure 108/64 128/87 113/71 O2 Sat by Pulse 97 96 Oximetry (%) 05/26/20 05/26/20 05/26/20 13:18 14:53 19:28 Temperature 100 F H Pulse Rate 73 79 Respiratory 16 Rate Blood Pressure 127/80 120/79 O2 Sat by Pulse 98 100 Oximetry (%) 05/27/20 05/27/20 06:23 08:30 Temperature 97.5 F L Pulse Rate 73 69 Respiratory 18 18 Rate Blood Pressure 125/81 104/63 O2 Sat by Pulse 99 Oximetry (%) PE ALERT AND ORIENTED X 3 SKIN WARM AND DRY NECK SUPPLE, NO JVD EXT FULL ROM, NO VISIBLE TREMORS AMB AD CRISTOBAL MILDLY ANXIOUS/RESTLESS A/P: OPIOD CRAVINGS SUBOXONE MAT PATIENT CONNECTED TO [facility] OTP, APPT 06/08/2020 WILL START SUBOXONE 4MG DAILY AND TITRATE DOSE ACCORDING TO SX AND CRAVINGS ENCOURAGE ORAL FLUIDS MONITOR CLINICALLY
[2020-05-27] MEDS: ATORVASTATIN CA 20 MG TABLET (FP) PO SCH (21:32)
[2020-05-27] MEDS: MELATONIN 5 MG TABLETS PO SCH (21:32)
[2020-05-27] MEDS: THIAMINE HCL 100 MG TABLET (FP) PO SCH (21:32)
[2020-05-27] MEDS: LIDOCAINE PATCH REMOVAL MC SCH (21:34)
[2020-05-28] MEDS ORDERED: PT OWN MED DRAWER 7, Y5N ONE ×3 (03:15→14:05)
[2020-05-28] MEDS: LABETALOL HCL 200 MG TABLET (FP) PO SCH ×3 (06:24→22:18)
[2020-05-28] MEDS: PRENATAL VITAMINS W/ FOLIC ACID TABLET (FP) PO SCH (09:56)
[2020-05-28] MEDS: ASPIRIN 81 MG CHEWABLE TABLETS PO SCH (09:56)
[2020-05-28] MEDS: amLODIPine BESYLATE 10 MG TABLET (FP) PO SCH (09:56)
[2020-05-28] MEDS: METHYL SALICYLATE/MENTHOL OINT 30 GM TUBE TP SCH (09:56)
[2020-05-28] MEDS: BUPRENORPHINE/NALOXONE 4 MG/1 MG FILM PACKET SL SCH (09:56)
[2020-05-28] MEDS: LIDOCAINE 5% TOPICAL PATCH TP SCH (09:56)
[2020-05-28] MEDS: COLCHICINE 0.6 MG CAP PO SCH (09:57)
[2020-05-28] MEDS: CALCIUM 500MG/VIT-D 200 UNITS COMBO TABLET (FP) PO SCH ×2 (09:58→22:18)
[2020-05-28] MEDS: ATORVASTATIN CA 20 MG TABLET (FP) PO SCH (22:16)
[2020-05-28] MEDS: THIAMINE HCL 100 MG TABLET (FP) PO SCH (22:16)
[2020-05-28] MEDS: LIDOCAINE PATCH REMOVAL MC SCH (22:16)
[2020-05-28] MEDS: MELATONIN 5 MG TABLETS PO SCH (22:16)
[2020-05-28] MEDS: hydrOXYzine PAMOATE 25 MG CAPSULE (FP) PO PRN (22:16)
[2020-05-29] MEDS ORDERED: PT OWN MED DRAWER 7, Y5N ONE ×3 (03:05→19:31)
[2020-05-29] MEDS: LABETALOL HCL 200 MG TABLET (FP) PO SCH ×3 (06:28→21:57)
[2020-05-29] MEDS: ASPIRIN 81 MG CHEWABLE TABLETS PO SCH (09:31)
[2020-05-29] MEDS: METHYL SALICYLATE/MENTHOL OINT 30 GM TUBE TP SCH (09:31)
[2020-05-29] MEDS: amLODIPine BESYLATE 10 MG TABLET (FP) PO SCH (09:31)
[2020-05-29] MEDS: COLCHICINE 0.6 MG CAP PO SCH (09:31)
[2020-05-29] MEDS: LIDOCAINE 5% TOPICAL PATCH TP SCH (09:31)
[2020-05-29] MEDS: PRENATAL VITAMINS W/ FOLIC ACID TABLET (FP) PO SCH (09:32)
[2020-05-29] MEDS: BUPRENORPHINE/NALOXONE 4 MG/1 MG FILM PACKET SL SCH (09:32)
[2020-05-29] MEDS: CALCIUM 500MG/VIT-D 200 UNITS COMBO TABLET (FP) PO SCH ×2 (09:32→21:57)
--- NOTE | 2020-05-29 10:46 | CONSULT ---
[facility] Psychiatric Consult - Data Date of interview: 05/29/20 Admission source: [facility] Identifying data: Patient is a 59 year old male, father of seven, unemployed, domiciled, and is supported by [employer]. This is one of multiple admissions for patient. Patient admitted to for opiate and PCP dependence. Substance Abuse History: Substance Use History. Heroin. Substance amount: 2-3 bags. Frequency of use: Daily. Substance route: Inhalation (ex: sniffing or snorting). Date of Last Use: 05/19/20. First use age 31. No hx of OD. No Narcan: no. PCP. Substance amount: 1 bag. Frequency of use: Once a month. Substance route: Smoking. Date of Last Use: 05/18/20. First use age 20 y Medical History: Hypertension,past history of cholecystectomy,CVA (2010) without residual deficits,renal disease (history of stent placement) and antecedent of treatment for aortic dissection (2016). Psychiatric History: Patient's first psychiatric contact was fifteen years ago a t a clinic in [facility] due to depression and hearing voices. Patient unaware of his diagnosis but stated that he was treated with seroquel. His next psychiatric contact was three years ago at the same clinic he saw the psychiatrist 15 years ago. States that he was again treated with seroquel for the auditory hallucinations. Mr. Goetz reports hearing voices only when he experiences episodes of severe depression. Reports that there has been moments when the voices have told him to hurt others but stated that he would never act on what the voices tell him. Mr. Carpenter is totally lost in outpatient psychiatric care. No reported history of psychiatric hospitalizations or suicide attempts. He denies suicidal/homicidal ideation, auditory/ visual hallucinations. No psychosis noted. States that he currently takes ambien for insomna. At present patient reports difficulty sleeping. Physical/Sexual Abuse/Trauma History: denies. Mental Status Exam - Mental Status Exam Alert and Oriented to: Time, Place, Person Cognitive Function: Good Patient Appearance: Well Groomed Mood: Hopeful Affect: Appropriate Patient Behavior: Appropriate, Cooperative Speech Pattern: Appropriate Voice Loudness: Normal Thought Process: Intact, Goal Oriented Thought Disorder: Not Present Hallucinations: Denies Suicidal Ideation: Denies Homicidal Ideation: Denies Insight/Judgement: Poor Sleep: Poorly Appetite: Fair Muscle strength/Tone: Normal Gait/Station: Normal Psychiatric Findings - Problem List ([place] 1, 2,3) (1) Opiate dependence Status: Chronic Qualifiers: Substance use status: uncomplicated Qualified Code(s): F11.20 - Opioid dependence, uncomplicated (2) PCP (phencyclidine) abuse Status: Chronic (3) History of depression Status: Chronic (4) Substance induced mood disorder Status: Acute (5) Substance-induced sleep disorder Status: Acute - Initial Treatment Plan Initial Treatment Plan: Psychoeducation provided. Rehab in progress. Will order Seroquel 50mg ( patient's request). Benefits and side effects discussed. Verbal consent given.
[2020-05-29] MEDS: ATORVASTATIN CA 20 MG TABLET (FP) PO SCH (21:56)
[2020-05-29] MEDS: LIDOCAINE PATCH REMOVAL MC SCH (21:57)
[2020-05-29] MEDS: THIAMINE HCL 100 MG TABLET (FP) PO SCH (21:57)
[2020-05-29] MEDS: hydrOXYzine PAMOATE 25 MG CAPSULE (FP) PO PRN (21:57)
[2020-05-29] MEDS: QUEtiapine FUMARATE 50 MG TABLET PO SCH (21:58)
[2020-05-29] MEDS: MELATONIN 5 MG TABLETS PO SCH (21:59)
[2020-05-30] MEDS ORDERED: PT OWN MED DRAWER 7, Y5N ONE ×2 (02:50→19:14)
[2020-05-30] MEDS: LABETALOL HCL 200 MG TABLET (FP) PO SCH ×3 (06:11→21:55)
[2020-05-30] MEDS: LIDOCAINE 5% TOPICAL PATCH TP SCH (09:39)
[2020-05-30] MEDS: CALCIUM 500MG/VIT-D 200 UNITS COMBO TABLET (FP) PO SCH ×2 (09:40→21:55)
[2020-05-30] MEDS: ASPIRIN 81 MG CHEWABLE TABLETS PO SCH (09:40)
[2020-05-30] MEDS: METHYL SALICYLATE/MENTHOL OINT 30 GM TUBE TP SCH (09:40)
[2020-05-30] MEDS: amLODIPine BESYLATE 10 MG TABLET (FP) PO SCH (09:40)
[2020-05-30] MEDS: PRENATAL VITAMINS W/ FOLIC ACID TABLET (FP) PO SCH (09:40)
[2020-05-30] MEDS: BUPRENORPHINE/NALOXONE 4 MG/1 MG FILM PACKET SL SCH (09:41)
[2020-05-30] MEDS: COLCHICINE 0.6 MG CAP PO SCH (09:41)
[2020-05-30] MEDS: ATORVASTATIN CA 20 MG TABLET (FP) PO SCH (21:55)
[2020-05-30] MEDS: QUEtiapine FUMARATE 50 MG TABLET PO SCH (21:55)
[2020-05-30] MEDS: MELATONIN 5 MG TABLETS PO SCH (21:55)
[2020-05-30] MEDS: THIAMINE HCL 100 MG TABLET (FP) PO SCH (21:55)
[2020-05-30] MEDS: LIDOCAINE PATCH REMOVAL MC SCH (22:06)
[2020-05-31] MEDS ORDERED: PT OWN MED DRAWER 7, Y5N ONE ×2 (05:45→08:45)
[2020-05-31] MEDS: LABETALOL HCL 200 MG TABLET (FP) PO SCH ×3 (06:40→21:15)
[2020-05-31] MEDS: CALCIUM 500MG/VIT-D 200 UNITS COMBO TABLET (FP) PO SCH ×2 (09:42→21:16)
[2020-05-31] MEDS: LIDOCAINE 5% TOPICAL PATCH TP SCH (09:42)
[2020-05-31] MEDS: ASPIRIN 81 MG CHEWABLE TABLETS PO SCH (09:42)
[2020-05-31] MEDS: amLODIPine BESYLATE 10 MG TABLET (FP) PO SCH (09:42)
[2020-05-31] MEDS: PRENATAL VITAMINS W/ FOLIC ACID TABLET (FP) PO SCH (09:42)
[2020-05-31] MEDS: COLCHICINE 0.6 MG CAP PO SCH (09:42)
[2020-05-31] MEDS: BUPRENORPHINE/NALOXONE 4 MG/1 MG FILM PACKET SL SCH (09:42)
[2020-05-31] MEDS: METHYL SALICYLATE/MENTHOL OINT 30 GM TUBE TP SCH (09:45)
--- NOTE | 2020-05-31 12:07 | PN ---
S Progress Note Note: Patient complains of sleeping porly despite taking Seroquel 50 mg/hs. He requests a higher dose. Will increase Seroquel dosage to 100 mg/hs
[2020-05-31] MEDS: MELATONIN 5 MG TABLETS PO SCH (21:15)
[2020-05-31] MEDS: hydrOXYzine PAMOATE 25 MG CAPSULE (FP) PO PRN (21:15)
[2020-05-31] MEDS: LIDOCAINE PATCH REMOVAL MC SCH (21:15)
[2020-05-31] MEDS: ATORVASTATIN CA 20 MG TABLET (FP) PO SCH (21:15)
[2020-05-31] MEDS: THIAMINE HCL 100 MG TABLET (FP) PO SCH (21:15)
[2020-05-31] MEDS: QUEtiapine FUMARATE 100 MG TABLET (FP) PO SCH (21:16)
[2020-06-01] MEDS: LABETALOL HCL 200 MG TABLET (FP) PO SCH ×3 (06:13→21:14)
[2020-06-01] MEDS: BUPRENORPHINE/NALOXONE 4 MG/1 MG FILM PACKET SL SCH (10:15)
[2020-06-01] MEDS: COLCHICINE 0.6 MG CAP PO SCH (10:15)
[2020-06-01] MEDS: CALCIUM 500MG/VIT-D 200 UNITS COMBO TABLET (FP) PO SCH ×2 (10:15→21:14)
[2020-06-01] MEDS: ASPIRIN 81 MG CHEWABLE TABLETS PO SCH (10:15)
[2020-06-01] MEDS: METHYL SALICYLATE/MENTHOL OINT 30 GM TUBE TP SCH (10:16)
[2020-06-01] MEDS: amLODIPine BESYLATE 10 MG TABLET (FP) PO SCH (10:16)
[2020-06-01] MEDS: LIDOCAINE 5% TOPICAL PATCH TP SCH (10:16)
[2020-06-01] MEDS: PRENATAL VITAMINS W/ FOLIC ACID TABLET (FP) PO SCH (10:16)
[2020-06-01] MEDS: ATORVASTATIN CA 20 MG TABLET (FP) PO SCH (21:13)
[2020-06-01] MEDS: LIDOCAINE PATCH REMOVAL MC SCH (21:13)
[2020-06-01] MEDS: QUEtiapine FUMARATE 100 MG TABLET (FP) PO SCH (21:14)
[2020-06-01] MEDS: THIAMINE HCL 100 MG TABLET (FP) PO SCH (21:14)
[2020-06-01] MEDS: hydrOXYzine PAMOATE 25 MG CAPSULE (FP) PO PRN (21:14)
[2020-06-01] MEDS: MELATONIN 5 MG TABLETS PO SCH (21:14)
[2020-06-02] MEDS: LABETALOL HCL 200 MG TABLET (FP) PO SCH ×3 (06:38→22:34)
[2020-06-02] MEDS: amLODIPine BESYLATE 10 MG TABLET (FP) PO SCH (10:19)
[2020-06-02] MEDS: PRENATAL VITAMINS W/ FOLIC ACID TABLET (FP) PO SCH (10:19)
[2020-06-02] MEDS: ASPIRIN 81 MG CHEWABLE TABLETS PO SCH (10:19)
[2020-06-02] MEDS: LIDOCAINE 5% TOPICAL PATCH TP SCH (10:20)
[2020-06-02] MEDS: CALCIUM 500MG/VIT-D 200 UNITS COMBO TABLET (FP) PO SCH ×2 (10:20→22:35)
[2020-06-02] MEDS: COLCHICINE 0.6 MG CAP PO SCH (10:20)
[2020-06-02] MEDS: BUPRENORPHINE/NALOXONE 4 MG/1 MG FILM PACKET SL SCH (10:21)
[2020-06-02] MEDS: METHYL SALICYLATE/MENTHOL OINT 30 GM TUBE TP SCH (11:12)
[2020-06-02] MEDS: ATORVASTATIN CA 20 MG TABLET (FP) PO SCH (21:36)
[2020-06-02] MEDS: THIAMINE HCL 100 MG TABLET (FP) PO SCH (21:36)
[2020-06-02] MEDS: MELATONIN 5 MG TABLETS PO SCH (21:36)
[2020-06-02] MEDS: QUEtiapine FUMARATE 100 MG TABLET (FP) PO SCH (21:36)
[2020-06-02] MEDS: hydrOXYzine PAMOATE 25 MG CAPSULE (FP) PO PRN (21:39)
[2020-06-02] MEDS: LIDOCAINE PATCH REMOVAL MC SCH (21:42)
[2020-06-03] MEDS: LABETALOL HCL 200 MG TABLET (FP) PO SCH ×3 (06:18→21:45)
[2020-06-03] MEDS: amLODIPine BESYLATE 10 MG TABLET (FP) PO SCH (10:13)
[2020-06-03] MEDS: COLCHICINE 0.6 MG CAP PO SCH (10:13)
[2020-06-03] MEDS: PRENATAL VITAMINS W/ FOLIC ACID TABLET (FP) PO SCH (10:13)
[2020-06-03] MEDS: ASPIRIN 81 MG CHEWABLE TABLETS PO SCH (10:13)
[2020-06-03] MEDS: CALCIUM 500MG/VIT-D 200 UNITS COMBO TABLET (FP) PO SCH ×2 (10:13→21:47)
[2020-06-03] MEDS: LIDOCAINE 5% TOPICAL PATCH TP SCH (10:14)
[2020-06-03] MEDS: METHYL SALICYLATE/MENTHOL OINT 30 GM TUBE TP SCH (10:14)
[2020-06-03] MEDS ORDERED: BUPRENORPHINE/NALOXONE 4 MG/1 MG FILM PACKET SL ONE (10:45)
[2020-06-03] MEDS: LIDOCAINE PATCH REMOVAL MC SCH (21:44)
[2020-06-03] MEDS: THIAMINE HCL 100 MG TABLET (FP) PO SCH (21:45)
[2020-06-03] MEDS: ATORVASTATIN CA 20 MG TABLET (FP) PO SCH (21:45)
[2020-06-03] MEDS: MELATONIN 5 MG TABLETS PO SCH (21:46)
[2020-06-03] MEDS: QUEtiapine FUMARATE 100 MG TABLET (FP) PO SCH (21:48)
[2020-06-04] MEDS: LABETALOL HCL 200 MG TABLET (FP) PO SCH ×3 (06:26→21:13)
[2020-06-04] MEDS: ASPIRIN 81 MG CHEWABLE TABLETS PO SCH (10:09)
[2020-06-04] MEDS: amLODIPine BESYLATE 10 MG TABLET (FP) PO SCH (10:09)
[2020-06-04] MEDS: BUPRENORPHINE/NALOXONE 4 MG/1 MG FILM PACKET SL SCH (10:10)
[2020-06-04] MEDS: PRENATAL VITAMINS W/ FOLIC ACID TABLET (FP) PO SCH (10:10)
[2020-06-04] MEDS: CALCIUM 500MG/VIT-D 200 UNITS COMBO TABLET (FP) PO SCH ×2 (10:10→21:13)
[2020-06-04] MEDS: LIDOCAINE 5% TOPICAL PATCH TP SCH (10:11)
[2020-06-04] MEDS: METHYL SALICYLATE/MENTHOL OINT 30 GM TUBE TP SCH (10:12)
[2020-06-04] MEDS: COLCHICINE 0.6 MG CAP PO SCH (10:12)
[2020-06-04] MEDS: LIDOCAINE PATCH REMOVAL MC SCH (21:13)
[2020-06-04] MEDS: hydrOXYzine PAMOATE 25 MG CAPSULE (FP) PO PRN (21:13)
[2020-06-04] MEDS: ATORVASTATIN CA 20 MG TABLET (FP) PO SCH (21:13)
[2020-06-04] MEDS: THIAMINE HCL 100 MG TABLET (FP) PO SCH (21:14)
[2020-06-04] MEDS: QUEtiapine FUMARATE 100 MG TABLET (FP) PO SCH (21:14)
[2020-06-04] MEDS: MELATONIN 5 MG TABLETS PO SCH (21:14)
[2020-06-05] MEDS: LABETALOL HCL 200 MG TABLET (FP) PO SCH ×3 (06:14→21:24)
[2020-06-05] MEDS: ASPIRIN 81 MG CHEWABLE TABLETS PO SCH (09:58)
[2020-06-05] MEDS: amLODIPine BESYLATE 10 MG TABLET (FP) PO SCH (09:58)
[2020-06-05] MEDS: METHYL SALICYLATE/MENTHOL OINT 30 GM TUBE TP SCH (09:59)
[2020-06-05] MEDS: PRENATAL VITAMINS W/ FOLIC ACID TABLET (FP) PO SCH (09:59)
[2020-06-05] MEDS: CALCIUM 500MG/VIT-D 200 UNITS COMBO TABLET (FP) PO SCH ×2 (09:59→21:24)
[2020-06-05] MEDS: COLCHICINE 0.6 MG CAP PO SCH (09:59)
[2020-06-05] MEDS: BUPRENORPHINE/NALOXONE 4 MG/1 MG FILM PACKET SL SCH (10:00)
[2020-06-05] MEDS: LIDOCAINE 5% TOPICAL PATCH TP SCH (10:00)
[2020-06-05] MEDS: LIDOCAINE PATCH REMOVAL MC SCH (21:24)
[2020-06-05] MEDS: hydrOXYzine PAMOATE 25 MG CAPSULE (FP) PO PRN (21:24)
[2020-06-05] MEDS: QUEtiapine FUMARATE 100 MG TABLET (FP) PO SCH (21:24)
[2020-06-05] MEDS: MELATONIN 5 MG TABLETS PO SCH (21:24)
[2020-06-05] MEDS: ATORVASTATIN CA 20 MG TABLET (FP) PO SCH (21:24)
[2020-06-05] MEDS: THIAMINE HCL 100 MG TABLET (FP) PO SCH (21:24)
[2020-06-06] MEDS: LABETALOL HCL 200 MG TABLET (FP) PO SCH (06:10)
[2020-06-06 07:23] VITALS: BP 121/67; PULSE 65; TEMP 97.6
--- NOTE | 2020-06-06 09:38 | DS ---
[facility] Rehab Discharge Summary - [facility] Rehab Discharge Summary Admission Date: 05/24/20 Discharge Date: 06/06/20 - History Present History: Opioid dependence, PCP dependence Pertinent Past History: HTN Anemia - Discharge Physical Exam Vital Signs: Vital Signs Temperature 97.6 F 06/06/20 07:22 Pulse Rate 65 06/06/20 07:22 Respiratory Rate 18 06/06/20 07:22 Blood Pressure 121/67 06/06/20 07:22 O2 Sat by Pulse Oximetry (%) 97 06/06/20 07:22 Pertinent Admission Physical Exam Findings: Detox admission labs - Thrombocytopenia Anemia Pt to follow up with his primary care provider with copy of lab for medical management of comorbid conditions. - Treatment Discharge Condition: Discharge condition good Hospital Course: Pt accepted CD aftercare to [facility] [place], [address] [place] [address] - Medication Discharge Medications: Ambulatory Orders Amlodipine Besylate [Norvasc -] 10 mg PO DAILY 12/20/17 Aspirin [ASA -] 81 mg PO DAILY 12/20/17 Atorvastatin Ca [Lipitor] 20 mg PO HS 12/20/17 Labetalol HCl [Normodyne -] 400 mg PO TID 12/20/17 Zolpidem Tartrate [Ambien] 10 mg PO HS 12/20/17 Calcium 500Mg/Vit-D 200 Units [Os-Jacob 500+D -] 1 tab PO BID tab 05/24/20 Colchicine [Colcrys] 0.6 mg PO DAILY cap 05/24/20 Quetiapine Fumarate [Seroquel -] 100 mg PO HS #30 tablet 06/06/20 - Medication-Assisted Treatment (MAT) Medication-Assisted Treatment (MAT): No - Discharge Instructions Diet, activity, other medical instructions: Diet:NOE Activity: oob ad keira Other medical instructions:follow up with [facility] and primary care provider Dr. Hernán Meneses at [address] [place] [address]. - Diagnosis (1) Opiate dependence Status: Chronic Qualifiers: Substance use status: uncomplicated Qualified Code(s): F11.20 - Opioid dependence, uncomplicated (2) Hypertension Status: Chronic Qualifiers: Hypertension type: essential hypertension Qualified Code(s): I10 - Essential (primary) hypertension (3) PCP (phencyclidine) abuse Status: Chronic (4) Thrombocytopenia Status: Chronic (5) Anemia Status: Chronic - Follow-up Referral Minutes to complete discharge: 25 - AMA Did Patient Leave Against Medical Advice: No Additional Comments: Pt reports he has own meds at home. pt reminded to follow up with his PCP Dr. owen for medical management of comorbid conditions.
[2020-06-06] MEDS: ASPIRIN 81 MG CHEWABLE TABLETS PO SCH (10:21)
[2020-06-06] MEDS: CALCIUM 500MG/VIT-D 200 UNITS COMBO TABLET (FP) PO SCH (10:21)
[2020-06-06] MEDS: amLODIPine BESYLATE 10 MG TABLET (FP) PO SCH (10:21)
[2020-06-06] MEDS: PRENATAL VITAMINS W/ FOLIC ACID TABLET (FP) PO SCH (10:21)
[2020-06-06] MEDS: LIDOCAINE 5% TOPICAL PATCH TP SCH (10:22)
[2020-06-06] MEDS: COLCHICINE 0.6 MG CAP PO SCH (10:22)
[2020-06-06] MEDS: METHYL SALICYLATE/MENTHOL OINT 30 GM TUBE TP SCH (10:22)
[2020-06-06] MEDS: BUPRENORPHINE/NALOXONE 4 MG/1 MG FILM PACKET SL SCH (10:23)
--- NOTE | 2020-06-06 10:47 | PN ---
[facility] Progress Note Note: Patient is discharged today. Script for 30 days supply of Seroquel 100 mg/hs is electronically transmitted to [facility], [place] [address]
== END 2020-06-06 11:40 | disposition home or self-care (01) | DRG 772 ==
LOC: YASAS 12:25 → Y3E 12:29 → Y5N 05-31 14:20
PROVIDERS: ADMIT Allergy & Immunology; ATTEND Allergy & Immunology
PROC: HZ42ZZZ Group Counseling for Substance Abuse Treatment, Cognitive-Behavioral (ICD-10-PCS; principal; 2020-05-24)
DX: F11.20 Opioid dependence, uncomplicated (principal); F16.20 Hallucinogen dependence, uncomplicated; F19.282 Other psychoactive substance dependence with psychoactive substance-induced sleep disorder; F19.24 Other psychoactive substance dependence with psychoactive substance-induced mood disorder; D69.6 Thrombocytopenia, unspecified; D64.9 Anemia, unspecified; I10 Essential (primary) hypertension; N28.9 Disorder of kidney and ureter, unspecified; Z96.0 Presence of urogenital implants; Z86.73 Personal history of transient ischemic attack (TIA), and cerebral infarction without residual deficits; Z86.79 Personal history of other diseases of the circulatory system; Z90.49 Acquired absence of other specified parts of digestive tract; Z88.8 Allergy status to other drugs, medicaments and biological substances

== ENCOUNTER 2021-01-11 19:15 | Inpatient (IN) | payer OTHER ==
[2021-01-11 20:27] VITALS: BMI 30.1
[2021-01-11] MEDS ORDERED: COLCHICINE 0.6 MG CAP PO ONE (21:26)
[2021-01-11] MEDS ORDERED: COLCHICINE 0.6 MG CAP ONE (21:39)
[2021-01-11 21:46] LABS: BASO % 0.6 % (0-2.0); EOS % 0.4 % (0-4.5); HEMATOCRIT 31.9 % (35.4-49); HEMOGLOBIN 10.3 GM/dL (11.7-16.9); LYMPH % 11.6 % (8-40); MCH 25.9 pg (25.7-33.7); MCHC 32.2 g/dl (32.0-35.9); MEAN CELL VOLUME 80.6 fl (80-96); MEAN PLT VOLUME 8.4 fl (7.5-11.1); MONO % 15.8 % (3.8-10.2); NEUT % 71.6 % (42.8-82.8); PLATELET COUNT 155 K/MM3 (134-434); RBC 3.96 M/mm3 (4.00-5.60); RDW 16.9 % (11.9-15.9); WHITE BLOOD COUNT 11.2 K/mm3 (4.0-10.0)
[2021-01-11 22:04] LABS: POTASSIUM 4.7 mmol/L (3.5-5.1)
[2021-01-11 22:06] LABS: CALCIUM 9.7 mg/dL (8.5-10.1)
[2021-01-11 22:07] LABS: ALBUMIN 3.8 g/dl (3.4-5.0); BLOOD UREA NITROGEN 51.8 mg/dL (7-18)
[2021-01-11 22:10] LABS: CREATININE 2.5 mg/dL (0.55-1.3)
[2021-01-11 22:11] LABS: BILIRUBIN,TOTAL 0.7 mg/dL (0.2-1)
[2021-01-11] MEDS ORDERED: SODIUM CHLORIDE 500 ML IV STA (22:59)
[2021-01-11] MEDS ORDERED: predniSONE 20 MG TABLET (UD) PO ONE (23:00)
[2021-01-11] MEDS ORDERED: predniSONE 20 MG TABLET (UD) ONE (23:10)
[2021-01-11] MEDS ORDERED: CEFAZOLIN 1 GM in DEXTROSE 5%-WATER - 50 ML IVPB ONE (23:25)
[2021-01-11 23:40] LABS: ERYTHROCYTE SEDIMENTATION RATE 25 mm/hr (0-20)
[2021-01-11] MEDS ORDERED: CEFAZOLIN 1 GM/D5W 1 GM/50 ML BAG ONE (23:45)
[2021-01-11] MEDS ORDERED: HEPARIN NA (PORCINE) 5,000 UNITS/ML 1ML VIAL SQ SCH (23:45)
[2021-01-11] MEDS ORDERED: ACETAMINOPHEN 325 MG TABLET (FP) PO PRN (23:54)
[2021-01-12 01:05] LABS: URIC ACID 12.5 mg/dL (2.6-7.2)
[2021-01-12] MEDS: HEPARIN NA (PORCINE) 5,000 UNITS/ML 1ML VIAL SQ SCH ×3 (06:30→21:12)
[2021-01-12 09:24] LABS: BASO % 0.2 % (0-2.0); HEMATOCRIT 29.9 % (35.4-49); HEMOGLOBIN 9.8 GM/dL (11.7-16.9); LYMPH % 4.3 % (8-40); MCH 26.3 pg (25.7-33.7); MCHC 32.9 g/dl (32.0-35.9); MEAN PLT VOLUME 8.4 fl (7.5-11.1); MONO % 3.7 % (3.8-10.2); NEUT % 91.8 % (42.8-82.8); PLATELET COUNT 157 K/MM3 (134-434); RBC 3.74 M/mm3 (4.00-5.60); RDW 16.8 % (11.9-15.9); WHITE BLOOD COUNT 9.2 K/mm3 (4.0-10.0)
[2021-01-12 09:25] LABS: INR 1.15 (0.83-1.09); PROTHROMBIN TIME (PATIENT) 13.9 SEC (9.7-13.0)
[2021-01-12 09:27] LABS: ACTIVATED PTT 30.2 SECONDS (25.2-36.5)
[2021-01-12 09:30] LABS: POTASSIUM 4.7 mmol/L (3.5-5.1)
[2021-01-12 09:31] LABS: ALBUMIN 3.1 g/dl (3.4-5.0); BLOOD UREA NITROGEN 45.2 mg/dL (7-18); MAGNESIUM 1.9 mg/dL (1.8-2.4)
[2021-01-12] MEDS ORDERED: PT OWN MED DRAWER 7, Y5N ONE (09:32)
[2021-01-12 09:35] LABS: BILIRUBIN,TOTAL 0.6 mg/dL (0.2-1); TOT PROT 6.9 g/dl (6.4-8.2)
[2021-01-12] MEDS ORDERED: COLCHICINE 0.6 MG TAB PO SCH (10:00)
[2021-01-12 10:41] LABS: IRON SERUM 14 ug/dL (50-175)
[2021-01-12 10:43] LABS: TOTAL IRON BINDING CAPACITY 289 ug/dL (250-450)
[2021-01-12 11:02] LABS: ANISOCYTOSIS 2+; MACROCYTOSIS 0; PLATELET ESTIMATE DECREASED; TARGET CELLS 1+
[2021-01-12 21:46] LABS: EPI CELLS 13 /uL (0-25.1); HYALINE CASTS 1 /uL (0-3.1); URINE APPEARANCE CLEAR; URINE BACTERIA 737 /uL (0-1359); URINE BILIRUBIN NEGATIVE (NEGATIVE); URINE COLOR YELLOW; URINE GLUCOSE (UA) NEGATIVE (NEGATIVE); URINE KETONE NEGATIVE (NEGATIVE); URINE LEUK ESTERASE 1+ (NEGATIVE); URINE NITRITE NEGATIVE (NEGATIVE); URINE PROTEIN NEGATIVE (NEGATIVE); URINE RBC 3 /uL (0-23.9); URINE UROBILINOGEN 0.2 mg/dL (0.2-1.0); URINE WBC 69 /uL (0-25.8)
[2021-01-13] MEDS: HEPARIN NA (PORCINE) 5,000 UNITS/ML 1ML VIAL SQ SCH (05:55)
[2021-01-13] MEDS ORDERED: predniSONE 20 MG TABLET (UD) PO SCH (08:00)
[2021-01-13] MEDS ORDERED: PT OWN MED DRAWER 7, Y5N ONE (08:37)
[2021-01-13] MEDS: COLCHICINE 0.6 MG TAB PO SCH ×2 (08:40→09:15)
[2021-01-13 08:49] VITALS: BP 158/73; PULSE 75; TEMP 98
[2021-01-13 09:22] LABS: POTASSIUM 4.2 mmol/L (3.5-5.1)
[2021-01-13 09:25] LABS: BLOOD UREA NITROGEN 42.4 mg/dL (7-18)
[2021-01-13 09:28] LABS: CALCIUM 9.8 mg/dL (8.5-10.1)
[2021-01-13 09:34] LABS: CREATININE 1.5 mg/dL (0.55-1.3)
== END 2021-01-13 11:03 | disposition home or self-care (01) | DRG 351 ==
LOC: JER 19:15 → JERBED 23:34 → J6S 01-12 03:08
PROVIDERS: ADMIT Internal Medicine; ATTEND Family Medicine
DX: M10.9 Gout, unspecified (principal); N17.9 Acute kidney failure, unspecified; F11.20 Opioid dependence, uncomplicated; I12.9 Hypertensive chronic kidney disease with stage 1 through stage 4 chronic kidney disease, or unspecified chronic kidney disease; N18.9 Chronic kidney disease, unspecified; E78.5 Hyperlipidemia, unspecified
CPT/HCPCS: 36415; 73130-TC-LT-FY; 80048; 80053; 81003; 82436; 82570; 82728; 83540; 83550; 83735; 84100; 84133; 84300; 84550; 85025; 85610; 85651; 85730; 86140; 93005; 93010; 99285-25; C9803; J1644; U0003; U0005

== ENCOUNTER 2021-01-13 14:31 | Emergency (ER) | payer OTHER ==
[2021-01-13 14:55] VITALS: TEMP 98.7; BMI 29.4
[2021-01-13 18:46] VITALS: BP 145/86; PULSE 99
== END 2021-01-13 19:29 | disposition left against medical advice (07) ==
LOC: JER 14:31
DX: F11.10 Opioid abuse, uncomplicated (principal)
CPT/HCPCS: 70450-TC; 71045-TC-FY; 72125-TC; 93005; 93010; 99285-25

== ENCOUNTER 2021-02-15 08:03 | Emergency (ER) | payer OTHER ==
[2021-02-15 08:32] VITALS: BMI 29.5
[2021-02-15] MEDS ORDERED: morphine CARPU-JECT 4 MG/1 ML DISP.SYRIN IVPUSH ONE ×2 (09:07→13:19)
[2021-02-15] MEDS ORDERED: morphine SULFATE 4 MG/ML VIAL ONE ×2 (09:09→13:26)
[2021-02-15] MEDS ORDERED: predniSONE 20 MG TABLET (UD) PO ONE (09:18)
[2021-02-15] MEDS ORDERED: predniSONE 20 MG TABLET (UD) ONE (09:23)
[2021-02-15 10:16] LABS: BASO % 0.3 % (0-2.0); EOS % 0.8 % (0-4.5); HEMATOCRIT 34.6 % (35.4-49); HEMOGLOBIN 11.4 GM/dL (11.7-16.9); LYMPH % 8.7 % (8-40); MCH 26.5 pg (25.7-33.7); MCHC 32.8 g/dl (32.0-35.9); MEAN PLT VOLUME 9.2 fl (7.5-11.1); MONO % 14.7 % (3.8-10.2); NEUT % 75.5 % (42.8-82.8); PLATELET COUNT 152 K/MM3 (134-434); RBC 4.28 M/mm3 (4.00-5.60); RDW 17.2 % (11.9-15.9); WHITE BLOOD COUNT 10.2 K/mm3 (4.0-10.0)
[2021-02-15 10:20] LABS: PROTHROMBIN TIME (PATIENT) 12.3 SEC (9.7-13.0)
[2021-02-15 10:23] LABS: ACTIVATED PTT 29.7 SECONDS (25.2-36.5)
[2021-02-15 10:35] LABS: CHLORIDE 106 mmol/L (98-107); SODIUM 137 mmol/L (136-145)
[2021-02-15 10:37] LABS: ALBUMIN 3.4 g/dl (3.4-5.0); CALCIUM 9.1 mg/dL (8.5-10.1)
[2021-02-15 10:38] LABS: ANION GAP 5 MMOL/L (8-16); CO2 26 mmol/L (21-32); GLUCOSE,RANDOM 115 mg/dL (74-106); MAGNESIUM 1.8 mg/dL (1.8-2.4)
[2021-02-15 10:39] LABS: URIC ACID 9.5 mg/dL (2.6-7.2)
[2021-02-15 10:41] LABS: CREATININE 1.6 mg/dL (0.55-1.3); SGOT/AST 21 U/L (15-37); SGPT/ALT 20 U/L (13-61)
[2021-02-15 10:43] LABS: ALK PHOS 61 U/L (45-117); BILIRUBIN,TOTAL 0.6 mg/dL (0.2-1); TOT PROT 7.4 g/dl (6.4-8.2)
[2021-02-15 10:46] LABS: N-TERMINAL BNP 360.9 pg/ml (5-125)
[2021-02-15] MEDS ORDERED: SODIUM CHLORIDE 0.9% 1000 ML INFUS.BAG IV ONE (13:19)
[2021-02-15 13:35] VITALS: BP 163/88; PULSE 83
[2021-02-15 13:36] VITALS: TEMP 97.9
== END 2021-02-15 14:43 | disposition short-term general hospital (02) ==
LOC: JER 08:03
PROC: 3E033NZ Introduction of Analgesics, Hypnotics, Sedatives into Peripheral Vein, Percutaneous Approach (ICD-10-PCS; principal; 2021-02-15)
DX: I71.9 Aortic aneurysm of unspecified site, without rupture (principal); M10.9 Gout, unspecified
CPT/HCPCS: 36415; 71045-TC-FY; 71275-TC; 73090-TC-LT-FY; 73130-TC-LT-FY; 73630-TC-RT-FY; 74174-TC; 80053; 82550; 82553; 83605; 83735; 83880; 84484; 84550; 85025; 85610; 85651; 85730; 86140; 87040; 93005; 93010; 99285-25; C9803; Q9967; U0003; U0005

== ENCOUNTER 2021-03-30 16:06 | Inpatient (IN) | payer OTHER ==
[2021-03-30 18:21] VITALS: BMI 29.4
[2021-03-30] MEDS ORDERED: MAGNESIUM HYDROX 2400MG/30ML ORAL SUSPENSION 30 ML CUP PO PRN (20:07)
[2021-03-30] MEDS ORDERED: MAG HYDROX/AL HYDROX/SIMETH 30 ML UNIT-DOSE CUP PO PRN (20:07)
[2021-03-30] MEDS ORDERED: METHADONE HCL 10 MG TABLET (FOR DETOX USE ONLY) PO ONE (20:07)
[2021-03-30] MEDS ORDERED: IBUPROFEN 400 MG TABLET (FP) PO PRN (20:07)
[2021-03-30] MEDS ORDERED: cloNIDine HCL 0.1 MG TABLET PO PRN (20:07)
[2021-03-30] MEDS ORDERED: METHOCARBAMOL 500 MG TABLET PO PRN (20:07)
[2021-03-30] MEDS ORDERED: ACETAMINOPHEN 325 MG TABLET (FP) PO PRN ×2 (20:07)
[2021-03-30] MEDS ORDERED: MENTHOL/PHENOL 1 EACH UD MM PRN (20:07)
[2021-03-30] MEDS ORDERED: NICOTINE POLACRILEX 2 MG GUM BUC PRN (20:07)
[2021-03-30] MEDS ORDERED: MAGNESIUM CITRATE 300 ML BOTTLE PO PRN (20:07)
[2021-03-30] MEDS ORDERED: BISMUTH SUBSALICYLATE 524 MG/30 ML PO PRN (20:07)
[2021-03-30] MEDS: ATORVASTATIN CA 20 MG TABLET (FP) PO SCH (21:47)
[2021-03-30] MEDS: THIAMINE HCL 100 MG TABLET (FP) PO SCH (21:47)
[2021-03-30] MEDS: hydrOXYzine PAMOATE 25 MG CAPSULE (FP) PO SCH (21:47)
[2021-03-30] MEDS: ONDANSETRON *ODT* 4 MG TABLET SL PRN (21:47)
[2021-03-30] MEDS: MELATONIN 5 MG TABLETS PO SCH (21:48)
[2021-03-30] MEDS: PRENATAL VITAMINS W/ FOLIC ACID TABLET (FP) PO SCH (21:48)
[2021-03-30] MEDS: LABETALOL HCL 200 MG TABLET (FP) PO SCH (23:29)
[2021-03-31] MEDS: hydrOXYzine PAMOATE 25 MG CAPSULE (FP) PO SCH ×2 (06:36→10:05)
[2021-03-31] MEDS: LABETALOL HCL 200 MG TABLET (FP) PO SCH ×3 (06:36→22:13)
[2021-03-31] MEDS ORDERED: METHADONE HCL 10 MG TABLET (FOR DETOX USE ONLY) ONE (09:51)
[2021-03-31] MEDS ORDERED: METHADONE HCL 5 MG TABLET (FOR DETOX USE ONLY) ONE (09:51)
[2021-03-31] MEDS ORDERED: METHADONE (DETOX) 20 MG, METHADONE (DETOX) 5 MG PO ONE (10:00)
[2021-03-31] MEDS: ASPIRIN 81 MG CHEWABLE TABLETS PO SCH (10:04)
[2021-03-31] MEDS: PRENATAL VITAMINS W/ FOLIC ACID TABLET (FP) PO SCH (10:04)
[2021-03-31] MEDS: amLODIPine BESYLATE 10 MG TABLET (FP) PO SCH (10:05)
[2021-03-31 10:24] LABS: HEMATOCRIT 33.5 % (35.4-49); HEMOGLOBIN 10.5 GM/dL (11.7-16.9); MCHC 31.4 g/dl (32.0-35.9); MEAN PLT VOLUME 8.5 fl (7.5-11.1); PLATELET COUNT 114 K/MM3 (134-434); RBC 4.04 M/mm3 (4.00-5.60); RDW 15.7 % (11.9-15.9); WHITE BLOOD COUNT 6.1 K/mm3 (4.0-10.0)
[2021-03-31 10:29] LABS: ALBUMIN 3.4 g/dl (3.4-5.0); BLOOD UREA NITROGEN 38.4 mg/dL (7-18); CALCIUM 9.1 mg/dL (8.5-10.1)
[2021-03-31 10:33] LABS: CREATININE 3.5 mg/dL (0.55-1.3)
[2021-03-31 10:34] LABS: BILIRUBIN,TOTAL 0.4 mg/dL (0.2-1); TOT PROT 6.8 g/dl (6.4-8.2)
[2021-03-31] MEDS ORDERED: hydrOXYzine PAMOATE 25 MG CAPSULE (FP) PO PRN (10:58)
[2021-03-31] MEDS: COLCHICINE 0.6 MG CAP PO SCH (13:11)
[2021-03-31] MEDS: MELATONIN 5 MG TABLETS PO SCH (22:12)
[2021-03-31] MEDS: ATORVASTATIN CA 20 MG TABLET (FP) PO SCH (22:13)
[2021-03-31] MEDS: THIAMINE HCL 100 MG TABLET (FP) PO SCH (22:13)
[2021-04-01] MEDS: LABETALOL HCL 200 MG TABLET (FP) PO SCH ×3 (05:52→22:20)
[2021-04-01] MEDS ORDERED: METHADONE HCL 10 MG TABLET (FOR DETOX USE ONLY) PO ONE (10:00)
[2021-04-01] MEDS: ASPIRIN 81 MG CHEWABLE TABLETS PO SCH (10:06)
[2021-04-01] MEDS: PRENATAL VITAMINS W/ FOLIC ACID TABLET (FP) PO SCH (10:06)
[2021-04-01] MEDS: amLODIPine BESYLATE 10 MG TABLET (FP) PO SCH (10:06)
[2021-04-01] MEDS: COLCHICINE 0.6 MG CAP PO SCH (10:07)
[2021-04-01] MEDS: MELATONIN 5 MG TABLETS PO SCH (22:20)
[2021-04-01] MEDS: THIAMINE HCL 100 MG TABLET (FP) PO SCH (22:20)
[2021-04-01] MEDS: ATORVASTATIN CA 20 MG TABLET (FP) PO SCH (22:20)
[2021-04-02] MEDS: LABETALOL HCL 200 MG TABLET (FP) PO SCH ×3 (05:42→22:13)
[2021-04-02] MEDS ORDERED: METHADONE HCL 10 MG TABLET (FOR DETOX USE ONLY) ONE (09:05)
[2021-04-02] MEDS ORDERED: METHADONE HCL 5 MG TABLET (FOR DETOX USE ONLY) ONE (09:06)
[2021-04-02] MEDS ORDERED: MASKS NR ONE (09:58)
[2021-04-02] MEDS: PRENATAL VITAMINS W/ FOLIC ACID TABLET (FP) PO SCH (09:59)
[2021-04-02] MEDS ORDERED: METHADONE (DETOX) 10 MG, METHADONE (DETOX) 5 MG PO ONE (10:00)
[2021-04-02] MEDS: amLODIPine BESYLATE 10 MG TABLET (FP) PO SCH (10:02)
[2021-04-02] MEDS: ASPIRIN 81 MG CHEWABLE TABLETS PO SCH (10:03)
[2021-04-02] MEDS: COLCHICINE 0.6 MG CAP PO SCH (10:03)
[2021-04-02] MEDS: ONDANSETRON *ODT* 4 MG TABLET SL PRN (10:05)
[2021-04-02 10:08] LABS: BLOOD UREA NITROGEN 27.3 mg/dL (7-18)
[2021-04-02 10:11] LABS: CREATININE 1.6 mg/dL (0.55-1.3)
[2021-04-02] MEDS: THIAMINE HCL 100 MG TABLET (FP) PO SCH (22:13)
[2021-04-02] MEDS: MELATONIN 5 MG TABLETS PO SCH (22:13)
[2021-04-02] MEDS: ATORVASTATIN CA 20 MG TABLET (FP) PO SCH (22:13)
[2021-04-03] MEDS: LABETALOL HCL 200 MG TABLET (FP) PO SCH ×3 (05:54→21:00)
[2021-04-03] MEDS ORDERED: METHADONE HCL 10 MG TABLET (FOR DETOX USE ONLY) PO ONE (10:00)
[2021-04-03] MEDS: PRENATAL VITAMINS W/ FOLIC ACID TABLET (FP) PO SCH (10:13)
[2021-04-03] MEDS: ASPIRIN 81 MG CHEWABLE TABLETS PO SCH (10:13)
[2021-04-03] MEDS: amLODIPine BESYLATE 10 MG TABLET (FP) PO SCH (10:13)
[2021-04-03] MEDS: COLCHICINE 0.6 MG CAP PO SCH (10:14)
[2021-04-03] MEDS: MELATONIN 5 MG TABLETS PO SCH (20:59)
[2021-04-03] MEDS: THIAMINE HCL 100 MG TABLET (FP) PO SCH (20:59)
[2021-04-03] MEDS: ATORVASTATIN CA 20 MG TABLET (FP) PO SCH (20:59)
[2021-04-04] MEDS: LABETALOL HCL 200 MG TABLET (FP) PO SCH (05:52)
[2021-04-04] MEDS ORDERED: METHADONE HCL 5 MG TABLET (FOR DETOX USE ONLY) PO ONE (06:00)
[2021-04-04 09:22] VITALS: BP 136/63; PULSE 77; TEMP 96.4
[2021-04-04] MEDS: ASPIRIN 81 MG CHEWABLE TABLETS PO SCH (09:30)
[2021-04-04] MEDS: PRENATAL VITAMINS W/ FOLIC ACID TABLET (FP) PO SCH (09:30)
[2021-04-04] MEDS: COLCHICINE 0.6 MG CAP PO SCH (09:30)
[2021-04-04] MEDS: amLODIPine BESYLATE 10 MG TABLET (FP) PO SCH (09:30)
== END 2021-04-04 09:20 | disposition home or self-care (01) | DRG 773 ==
LOC: YASAS 16:06 → Y3N 21:02
PROVIDERS: ADMIT Allergy & Immunology; ATTEND Allergy & Immunology
PROC: HZ2ZZZZ Detoxification Services for Substance Abuse Treatment (ICD-10-PCS; principal; 2021-03-30)
DX: F11.23 Opioid dependence with withdrawal (principal); F16.20 Hallucinogen dependence, uncomplicated; F10.10 Alcohol abuse, uncomplicated; F19.282 Other psychoactive substance dependence with psychoactive substance-induced sleep disorder; F19.24 Other psychoactive substance dependence with psychoactive substance-induced mood disorder; F32.9 Major depressive disorder, single episode, unspecified; D69.6 Thrombocytopenia, unspecified; E83.51 Hypocalcemia; I12.9 Hypertensive chronic kidney disease with stage 1 through stage 4 chronic kidney disease, or unspecified chronic kidney disease; N18.9 Chronic kidney disease, unspecified; N17.9 Acute kidney failure, unspecified; G47.00 Insomnia, unspecified; E78.5 Hyperlipidemia, unspecified; M10.9 Gout, unspecified; R79.89 Other specified abnormal findings of blood chemistry; R73.9 Hyperglycemia, unspecified; Z88.8 Allergy status to other drugs, medicaments and biological substances; Z90.49 Acquired absence of other specified parts of digestive tract; Z98.890 Other specified postprocedural states
CPT/HCPCS: 36415; 80053; 82565; 84520; 85027; 86780; 93005; 93010; C9803; Q0162; U0003; U0005

== ENCOUNTER 2024-08-01 17:58 | Inpatient (IN) | payer OTHER ==
[2024-08-01 18:41] VITALS: BMI 29.9
[2024-08-01] MEDS ORDERED: MAG HYDROX/AL HYDROX/SIMETH 30 ML UNIT-DOSE CUP PO PRN (19:18)
[2024-08-01] MEDS ORDERED: NALOXONE (NARCAN) HCL 4 MG/0.1 ML SPRAY NS PRN (19:18)
[2024-08-01] MEDS ORDERED: DICYCLOMINE HCL 10 MG CAPSULE PO PRN (19:18)
[2024-08-01] MEDS ORDERED: IBUPROFEN 400 MG TABLET (FP) PO PRN (19:18)
[2024-08-01] MEDS ORDERED: BENZONATATE 200 MG CAPSULE PO PRN (19:18)
[2024-08-01] MEDS ORDERED: POLYETHYLENE GLYCOL (HEALTHYLAX) 3350 17 GM PACKET PO PRN (19:18)
[2024-08-01] MEDS ORDERED: ONDANSETRON *ODT* 4 MG TABLET SL PRN (19:18)
[2024-08-01] MEDS ORDERED: MAGNESIUM HYDROX 2400MG/30ML ORAL SUSPENSION 30 ML CUP PO PRN (19:18)
[2024-08-01] MEDS ORDERED: BISMUTH SUBSALICYLATE 524 MG/30 ML PO PRN (19:18)
[2024-08-01] MEDS ORDERED: LOPERAMIDE HCL 2 MG CAPSULE PO PRN (19:18)
[2024-08-01] MEDS ORDERED: guaiFENesin 600 MG TABLET.ER (FP) PO PRN (19:18)
[2024-08-01] MEDS ORDERED: ACETAMINOPHEN 325 MG TABLET (FP) PO PRN (19:18)
[2024-08-01] MEDS: THIAMINE 100 MG TABLET PO SCH (22:18)
[2024-08-01] MEDS: MELATONIN 5 MG TABLETS PO SCH (22:19)
[2024-08-01] MEDS: hydrOXYzine PAMOATE 25 MG CAPSULE (FP) PO PRN (22:20)
[2024-08-02] MEDS: PRENATAL VITAMINS W/ FOLIC ACID TABLET (FP) PO SCH (09:26)
[2024-08-02] MEDS: ASPIRIN 81 MG CHEWABLE TABLETS PO SCH (09:26)
[2024-08-02] MEDS: amLODIPine BESYLATE 10 MG TABLET (FP) PO SCH (09:26)
[2024-08-02] MEDS: methaDONE HCL 10 MG TABLET (FOR DETOX USE ONLY) PO ONE (10:17)
[2024-08-02] MEDS: COLCHICINE 0.6 MG CAP PO SCH (10:55)
[2024-08-02] MEDS: LABETALOL HCL 200 MG TABLET (FP) PO SCH (13:12)
[2024-08-02] MEDS ORDERED: FLU VACCINE (FLULAVAL) PF 45 MCG/0.5 ML SYRINGE 2024-2025 IM ONE (19:32)
[2024-08-02] MEDS: QUEtiapine FUMARATE 50 MG TABLET PO SCH (22:46)
[2024-08-02] MEDS: cloNIDine HCL 0.1 MG TABLET PO PRN (22:46)
[2024-08-02] MEDS: ATORVASTATIN CA 20 MG TABLET (FP) PO SCH (22:46)
[2024-08-03] MEDS: FLU VACCINE (FLULAVAL) PF 45 MCG/0.5 ML SYRINGE 2024-2025 IM ONE (12:07)
[2024-08-03 15:19] LABS: HIV INTERPRETATION NEGATIVE (NEGATIVE)
[2024-08-04] MEDS: IBUPROFEN 600 MG TABLET (FP) PO PRN (10:37)
[2024-08-04] MEDS: METHOCARBAMOL 500 MG TABLET PO PRN (10:37)
[2024-08-04] MEDS: methaDONE HCL 10 MG TABLET (FOR DETOX USE ONLY) PO ONE (10:38)
[2024-08-06] MEDS: methaDONE HCL 10 MG TABLET (FOR DETOX USE ONLY) PO ONE (09:17)
[2024-08-06] MEDS: BENZOCAINE/MENTHOL (CHLORASEPTIC ) LOZENGE MM PRN (09:19)
[2024-08-07 08:55] VITALS: BP 134/63; PULSE 73; RESP 16; TEMP 97.6
[2024-08-07] MEDS: NALOXONE (NYS OPIOID OVERDOSE PROGRAM) 4 MG/0.1 ML SPRAY NS PRN (09:06)
== END 2024-08-07 09:06 | disposition home or self-care (01) | DRG 772 ==
LOC: YASAS 17:58 → Y6N 19:39
PROVIDERS: ADMIT Allergy & Immunology; ATTEND Surgery
PROC: HZ42ZZZ Group Counseling for Substance Abuse Treatment, Cognitive-Behavioral (ICD-10-PCS; principal; 2024-08-01)
DX: F11.23 Opioid dependence with withdrawal (principal); F16.20 Hallucinogen dependence, uncomplicated; F19.282 Other psychoactive substance dependence with psychoactive substance-induced sleep disorder; F32.A Depression, unspecified; F41.9 Anxiety disorder, unspecified; E78.5 Hyperlipidemia, unspecified; I10 Essential (primary) hypertension; G47.00 Insomnia, unspecified; M10.9 Gout, unspecified; E63.9 Nutritional deficiency, unspecified; Z86.79 Personal history of other diseases of the circulatory system
CPT/HCPCS: 0241U-QW; 36415; 71046-TC-FY; 80305; 80307; 86803; 87389; 90656; 93005; 93010; G0008

== ENCOUNTER 2025-06-02 21:45 | Inpatient (IN) | payer OTHER ==
[2025-06-02 22:54] VITALS: BMI 24.0
[2025-06-02] MEDS ORDERED: DICYCLOMINE HCL 10 MG CAPSULE PO PRN (23:32)
[2025-06-02] MEDS ORDERED: BISMUTH SUBSALICYLATE 524 MG/30 ML PO PRN (23:32)
[2025-06-02] MEDS ORDERED: MAG HYDROX/AL HYDROX/SIMETH 30 ML UNIT-DOSE CUP PO PRN (23:32)
[2025-06-02] MEDS ORDERED: guaiFENesin 600 MG TABLET.ER (FP) PO PRN (23:32)
[2025-06-02] MEDS ORDERED: NALOXONE (NARCAN) HCL 4 MG/0.1 ML SPRAY NS PRN (23:32)
[2025-06-02] MEDS ORDERED: BENZOCAINE/MENTHOL (CHLORASEPTIC ) LOZENGE MM PRN (23:32)
[2025-06-02] MEDS ORDERED: POLYETHYLENE GLYCOL (HEALTHYLAX) 3350 17 GM PACKET PO PRN (23:32)
[2025-06-02] MEDS ORDERED: MAGNESIUM HYDROX 2400MG/30ML ORAL SUSPENSION 30 ML CUP PO PRN (23:32)
[2025-06-02] MEDS ORDERED: LOPERAMIDE HCL 2 MG CAPSULE PO PRN (23:32)
[2025-06-02] MEDS ORDERED: ONDANSETRON *ODT* 4 MG TABLET SL PRN (23:32)
[2025-06-02] MEDS ORDERED: BENZONATATE 200 MG CAPSULE PO PRN (23:32)
[2025-06-03] MEDS: hydrOXYzine PAMOATE 25 MG CAPSULE (FP) PO PRN (02:49)
[2025-06-03] MEDS: METHOCARBAMOL 500 MG TABLET PO PRN (03:41)
[2025-06-03] MEDS: ACETAMINOPHEN 325 MG TABLET (FP) PO PRN (03:41)
[2025-06-03] MEDS: PRENATAL VITAMINS W/ FOLIC ACID TABLET (FP) PO SCH (10:33)
[2025-06-03] MEDS: COLCHICINE 0.6 MG CAP PO SCH (10:33)
[2025-06-03] MEDS: CALCIUM 500MG/VIT-D 200 UNITS COMBO TABLET (FP) PO SCH (10:36)
[2025-06-03] MEDS: ASPIRIN 81 MG CHEWABLE TABLETS PO SCH (10:36)
[2025-06-03] MEDS: amLODIPine BESYLATE 10 MG TABLET (FP) PO SCH (10:37)
[2025-06-03 10:46] LABS: IMMATURE PLATELET FRACTION # 5.40 x10^3/uL; MCHC 32.2 g/dl (32.3-36.5); MEAN CELL VOLUME 78.5 fl (79.0-92.2); RDW 15.3 % (12.2-16.4)
[2025-06-03 10:51] LABS: GLUCOSE,RANDOM 93 mg/dL (74-106); TOT PROT 6.4 g/dl (6.4-8.2)
[2025-06-03 10:53] LABS: CO2 23 mmol/L (21-32)
[2025-06-03 10:54] LABS: ALK PHOS 62 U/L (40-150)
[2025-06-03 10:57] LABS: CREATININE 2.12 mg/dL (0.55-1.3); SGOT/AST 39 U/L (5-34); SGPT/ALT 43 U/L (0-55)
[2025-06-03] MEDS: LABETALOL HCL 200 MG TABLET (FP) PO SCH (15:02)
[2025-06-03] MEDS: THIAMINE 100 MG TABLET PO SCH (22:53)
[2025-06-03] MEDS: MELATONIN 5 MG TABLETS PO SCH (22:53)
[2025-06-03] MEDS: ATORVASTATIN CA 20 MG TABLET (FP) PO SCH (22:53)
[2025-06-04] MEDS: COLCHICINE 0.6 MG TAB PO SCH (10:08)
[2025-06-07 09:58] LABS: RDW 15.2 % (12.2-16.4)
[2025-06-07 10:00] LABS: IMMATURE PLATELET FRACTION # 6.70 x10^3/uL; MCHC 32.2 g/dl (32.3-36.5); MEAN CELL VOLUME 79.6 fl (79.0-92.2); MEAN PLT VOLUME 11.3 fl (9.4-12.4)
[2025-06-07 10:10] LABS: GLUCOSE,RANDOM 89.0 mg/dL (74-106); TOT PROT 6.3 g/dl (6.4-8.2)
[2025-06-07 10:11] LABS: CO2 28.0 mmol/L (21-32)
[2025-06-07 10:13] LABS: ALK PHOS 57.0 U/L (40-150)
[2025-06-07 10:15] LABS: SGOT/AST 20.0 U/L (5-34); SGPT/ALT 21.0 U/L (0-55)
[2025-06-07 10:16] LABS: CREATININE 1.35 mg/dL (0.55-1.3)
[2025-06-09 09:31] VITALS: BP 137/98; PULSE 64; RESP 16; TEMP 97.6
== END 2025-06-09 12:25 | disposition other institution (70) | DRG 773 ==
LOC: YASAS 21:45 → Y6N 06-03 01:41
PROVIDERS: ADMIT Allergy & Immunology; ATTEND Allergy & Immunology
PROC: HZ2ZZZZ Detoxification Services for Substance Abuse Treatment (ICD-10-PCS; principal; 2025-06-03)
DX: F11.23 Opioid dependence with withdrawal (principal); F16.20 Hallucinogen dependence, uncomplicated; F19.282 Other psychoactive substance dependence with psychoactive substance-induced sleep disorder; F19.24 Other psychoactive substance dependence with psychoactive substance-induced mood disorder; E78.2 Mixed hyperlipidemia; I10 Essential (primary) hypertension; M1A.09X0 Idiopathic chronic gout, multiple sites, without tophus (tophi); R79.89 Other specified abnormal findings of blood chemistry; Z86.79 Personal history of other diseases of the circulatory system
CPT/HCPCS: 36415; 80053; 80307; 85027; 86780; 93005; 93010